=== PATIENT | female | born 1935 | race Caucasian/White ===

== ENCOUNTER 2020-09-22 12:31 | Inpatient (IN) | payer MEDICARE ==
[2020-09-22] MEDS ORDERED: SODIUM CHLORIDE 0.9% 1,000 ML IV STA ×2 (13:12)
[2020-09-22 13:25] LABS: Basophils % (A) 1 %; Eosinophils # (A) 0.1 k/uL (0-0.7); Eosinophils % (A) 2 %; HCT 41.7 % (34.0-46.0); HGB 14.2 gm/dL (11.4-16.0); Lymphocytes # (A) 0.9 k/uL (1.0-4.8); Lymphocytes % (A) 16 %; MCH 31.9 pg (25.0-35.0); MCV 93.9 fL (80.0-100.0); Mean Platelet Volume 7.5; Monocytes # (A) 0.5 k/uL (0-1.0); Monocytes % (A) 8 %; Neutrophils % (A) 71 %; Platelet Count 230 k/uL (150-450); RBC 4.44 m/uL (3.80-5.40); RDW 12.6 % (11.5-15.5); WBC 5.7 k/uL (3.8-10.6)
--- NOTE | 2020-09-22 13:30 | XR ---
EXAMINATION TYPE: XR chest 2V DATE OF EXAM: 09/22/2020 COMPARISON: 06/14/2011 INDICATION: Weakness and hypotension TECHNIQUE: Frontal and lateral views of the chest are obtained. FINDINGS: The heart size is normal. The pulmonary vasculature is normal. The lungs are clear. There is elevation of the right diaphragm. Advanced degenerative changes at the left shoulder. Some degenerative changes also noted at the right shoulder. IMPRESSION: 1. No acute pulmonary process.
--- NOTE | 2020-09-22 13:47 | ED ---
Weakness HPI - General Chief complaint: Weakness Stated complaint: Lethargic, not eating Time Seen by Provider: 09/22/20 12:44 Source: patient, family, RN notes reviewed, old records reviewed Mode of arrival: wheelchair Limitations: no limitations - History of Present Illness Initial comments: This 85-year-old female was brought in by family with complaints of weakness that is dressed over last one half weeks he agrees oral intake decreased urine output sleeping a lot no overt pain she does have chronic lymphedema which she is improving no falls no fevers chills sweats other symptoms MD Complaint: generalized weakness - Related Data Home Medications Medication Instructions Recorded Confirmed Digoxin [Lanoxin] 125 mcg PO DAILY 09/22/20 09/22/20 Furosemide [Lasix] See Taper PO DAILY 09/22/20 09/22/20 HYDROcodone/APAP 7.5-325MG [[place] 1 tab PO Q6H PRN 09/22/20 09/22/20 7.5-325] Levothyroxine Sodium [Synthroid] 125 mcg PO DAILY 09/22/20 09/22/20 Propranolol [Inderal] 40 mg PO QID 09/22/20 09/22/20 Spironolactone [Aldactone] 12.5 - 25 mg PO DAILY 09/22/20 09/22/20 Allergies Allergy/AdvReac Type Severity Reaction Status Date / Time No Known Allergies Allergy Verified 09/22/20 14:03 Review of Systems ROS Statement: Those systems with pertinent positive or pertinent negative responses have been documented in the HPI. ROS Other: All systems not noted in ROS Statement are negative. Past Medical History Past Medical History: Hypertension History of Any Multi-Drug Resistant Organisms: None Reported Past Surgical History: Hernia Repair, Hysterectomy Past Psychological History: No Psychological Hx Reported Smoking Status: Never smoker Past Alcohol Use History: None Reported Past Drug Use History: None Reported General Exam - General Exam Comments Initial Comments: This is a well-developed sec appearing female who is awake alert oriented 3 Limitations: no limitations General appearance: alert, lethargic Head exam: Present: atraumatic, normocephalic, normal inspection Eye exam: Present: normal appearance, PERRL, EOMI. Absent: scleral icterus, conjunctival injection, periorbital swelling ENT exam: Present: mucous membranes dry Neck exam: Present: normal inspection, full ROM, other (Social [place] improved). Absent: tenderness, meningismus, lymphadenopathy Respiratory exam: Present: normal lung sounds bilaterally. Absent: respiratory distress, wheezes, rales, rhonchi, stridor Cardiovascular Exam: Present: normal rhythm, bradycardia, normal heart sounds. Absent: systolic murmur, diastolic murmur, rubs, gallop, clicks GI/Abdominal exam: Present: soft, normal bowel sounds. Absent: distended, tenderness, guarding, rebound, rigid Extremities exam: Present: full ROM, normal capillary refill, pedal edema. Absent: tenderness, joint swelling, calf tenderness Back exam: Present: normal inspection Neurological exam: Present: alert, oriented X3, CN II-XII intact Psychiatric exam: Present: normal affect, normal mood Skin exam: Present: warm, dry, intact, normal color. Absent: rash Course Vital Signs 09/22/20 09/22/20 09/22/20 12:32 14:05 14:56 Temperature 98.5 F Pulse Rate 56 L 56 L 83 Respiratory 17 20 20 Rate Blood Pressure 86/48 95/51 80/54 O2 Sat by Pulse 97 96 96 Oximetry EKG Findings - EKG Results: EKG: interpreted by ERMD, sinus rhythm (Sinus bradycardia first-degree AV block rate of 50. Interval 300 QRS duration 90 QT since QTC 394/359 with exodeviation poor R-wave progression) Medical Decision Making - Medical Decision Making I did discuss [employer] the patient family patient does demonstrate evidence of dehydration with hyponatremia also renal insufficiency evidence of hypothyroidism and increased troponin though she's had no chest pain. Patient will be admitted the case is discussed with Dr. Christiansen - Lab Data Result diagrams: 09/22/20 13:09 09/22/20 13:09 Lab Results 09/22/20 09/22/20 09/22/20 Range/Units 13:09 13:09 13:09 WBC 5.7 (3.8-10.6) k/uL RBC 4.44 (3.80-5.40) m/uL Hgb 14.2 (11.4-16.0) gm/dL Hct 41.7 (34.0-46.0) % MCV 93.9 (80.0-100.0) fL MCH 31.9 (25.0-35.0) pg MCHC 34.0 (31.0-37.0) g/dL RDW 12.6 (11.5-15.5) % Plt Count 230 (150-450) k/uL MPV 7.5 Neutrophils % 71 % Lymphocytes % 16 % Monocytes % 8 % Eosinophils % 2 % Basophils % 1 % Neutrophils # 4.0 (1.3-7.7) k/uL Lymphocytes # 0.9 L (1.0-4.8) k/uL Monocytes # 0.5 (0-1.0) k/uL Eosinophils # 0.1 (0-0.7) k/uL Basophils # 0.0 (0-0.2) k/uL Sodium 125 L (137-145) mmol/L Potassium 5.1 (3.5-5.1) mmol/L Chloride 88 L (98-107) mmol/L Carbon Dioxide 19 L (22-30) mmol/L Anion Gap 18 mmol/L BUN 75 H (7-17) mg/dL Creatinine 1.94 H (0.52-1.04) mg/dL Est GFR (CKD-EPI)AfAm 26 (>60 ml/min/1.73 sqM) Est GFR (CKD-EPI)NonAf 23 (>60 ml/min/1.73 sqM) Glucose 74 (74-99) mg/dL Calcium 8.9 (8.4-10.2) mg/dL Magnesium 2.4 H (1.6-2.3) mg/dL Total Bilirubin 1.2 (0.2-1.3) mg/dL AST 24 (14-36) U/L ALT 7 (4-34) U/L Alkaline Phosphatase 156 H (38-126) U/L Creatine Kinase 72 (30-135) U/L Troponin I 0.043 H* (0.000-0.034) ng/mL Total Protein 6.7 (6.3-8.2) g/dL Albumin 4.1 (3.5-5.0) g/dL Lipase 923 H (23-300) U/L - Radiology Data Radiology results: report reviewed (Imaging reviewed no acute findings), image reviewed Disposition Clinical Impression: Dehydration, Acute kidney injury, Elevated troponin, Hyponatremia syndrome, P ancreatitis Disposition: ADMITTED IP TO THIS [facility] Condition: Fair Referrals: Roman Phelan MD [Primary Care Provider] - 1-2 days
[2020-09-22 13:48] LABS: Albumin 4.1 g/dL (3.5-5.0); Calcium 8.9 mg/dL (8.4-10.2); Magnesium 2.4 mg/dL (1.6-2.3); Potassium 5.1 mmol/L (3.5-5.1); Total Bilirubin 1.2 mg/dL (0.2-1.3); Total Protein 6.7 g/dL (6.3-8.2)
[2020-09-22] MEDS ORDERED: NALOXONE 0.4 MG/ML 1 ML VIAL IV PRN (15:10)
[2020-09-22] MEDS ORDERED: HYDROcodone/APAP 7.5-325MG 1 EACH TAB PO PRN (15:11)
[2020-09-22] MEDS ORDERED: IOPAMIDOL CONTRAST (ORAL USE) VIAL PO PRN (15:33)
[2020-09-22 16:24] LABS: Appearance,Urine Clear (Clear); Bilirubin,Urine Negative (Negative); Blood,Urine Negative (Negative); Color,Urine Yellow; Glucose,Urine (UA) Negative (Negative); Ketones,Urine 1+ (Negative); Leukocyte Esterase,Urine Negative (Negative); Nitrite,Urine Negative (Negative); Protein,Urine Negative (Negative); Specific Gravity,Urine 1.007 (1.001-1.035); Urobilinogen,Urine <2.0 mg/dL (<2.0)
--- NOTE | 2020-09-22 17:38 | CT ---
EXAMINATION TYPE: CT abdomen pelvis wo con DATE OF EXAM: 09/22/2020 COMPARISON: Radiographs 06/09/2011. HISTORY: Decreased appetite. CT DLP: 488.6 mGycm Automated exposure control for dose reduction was used. TECHNIQUE: Helical acquisition of images was performed from the lung bases through the pelvis. FINDINGS: LUNG BASES: Small opacity in the right lower lobe and minimal of the left lower lobe. No significant pleural effusion. LIVER/GB: No acute abnormality is appreciated. Cholecystectomy. Mild intrahepatic biliary ductal dila tation, nonspecific. Additional surgical clips in the right upper quadrant and retroperitoneum. PANCREAS: No significant abnormality is seen. SPLEEN: No significant abnormality is seen. ADRENALS: No significant abnormality is seen. KIDNEYS: 2 right and single left nonobstructing renal calculi measuring up to 3 mm. No bilateral hydr onephrosis or perinephric abnormality. FREE AIRNo free air is visualizedzed RETROPERITONEAL ADENOPATHYNone visualizedzed REPRODUCTIVE ORGANNo significant abnormality is seeneen URINARY BLADDER: Mildly distended urinary bladder. No significant wall thickening. PELVIC ADENOPATHYNone visualized.ed. OSSEOUS STRUCTURES: No acute abnormality is seen. Moderate to severe spondylosis with severe dextros coliosis of the lumbar spine centered at L3-L4. BOWEL: Moderate-sized bowel containing right inguinal hernia. No bowel obstruction or free fluid.. OTHER: None IMPRESSION: Mild bibasilar opacities, correlate for atelectasis versus developing infiltrates. No definite acute abnormality of the abdomen/pelvis. Chronic findings include nonobstructing renal calculi, bowel containing inguinal hernia and scoliosis as above.
[2020-09-22] MEDS: PROPRANOLOL 40 MG TAB PO SCH ×2 (21:09→22:42)
[2020-09-23] MEDS: LEVOTHYROXINE 125 MCG TAB PO SCH (06:25)
[2020-09-23 08:25] LABS: Albumin 3.5 g/dL (3.5-5.0); Calcium 8.6 mg/dL (8.4-10.2); Potassium 4.8 mmol/L (3.5-5.1); Total Bilirubin 1.1 mg/dL (0.2-1.3); Total Protein 5.9 g/dL (6.3-8.2)
[2020-09-23] MEDS ORDERED: SPIRONOLACTONE 25 MG TAB PO SCH (09:00)
[2020-09-23] MEDS ORDERED: DIGOXIN 125 MCG TAB PO SCH (09:00)
[2020-09-23] MEDS ORDERED: FUROSEMIDE 40 MG TAB PO SCH (09:00)
[2020-09-23] MEDS ORDERED: SODIUM CHLORIDE 0.9% 500 ML 500 ML IV ONE (09:29)
[2020-09-23] MEDS: PROPRANOLOL 40 MG TAB PO SCH (09:32)
--- NOTE | 2020-09-23 10:17 | P.CRDCN ---
History of Present Illness History of present illness: HISTORY OF PRESENTING ILLNESS This is a pleasant 85-year-old female past medical history significant for atrial fibrillation on anticoagulation, hypertension. She used to see Dr. Hinojosa last seen in 2016. We have been asked to see in consultation for elevated troponin. Patient started on bedside. For the past 12 weeks family has noticed that patient has had decreased by mouth intake, not looking well. Patient appeared to be dehydrated and was brought to the emergency department. Patient recently has had diarrhea, however family states that patient has history of having diarrhea. Patient is unsure why she has a decrease in appetite. She denies any nausea, vomiting, sick contacts. She denies any chest pain, shortness of breath, palpitations, lightheadedness, dizziness, syncope. Patient does have chronic lower extremity edema. Her legs do swell mostly at the end of the day, and are relieved with elevation. She states she was recently given PO Lasix due to lower extremity edema. On admission EKG revealed sinus bradycardia with first degree AV block, left axis deviation, non-specific ST-T wave abnormalities. Laboratory reviewed sodium 125, potassium 5.1, BUN 75, serum ferritin 1.94, magnesium 2.4, troponin 0.043, lipase 923, TSH within normal limits. Current home medications include spironolactone 12.5 mg daily, propanolol 40 mg 3 times a day, Synthroid 125mcg daily, Lasix 40 mg daily, [id number] daily. Telemetry reviewed patient in sinus mechanism heart rate 50-high 60s. Chest x-ray no acute cardiopulmonary process. Abdominal/pelvis CT revealed no definite abnormality of the abdomen and pelvis, mild bibasilar opacities correlate for atelectasis. Chronic findings including renal calculi, bowel continuing renal hernia, scoliosis. REVIEW OF SYSTEMS At the time of my exam: CONSTITUTIONAL: Denies fever or chills. CARDIOVASCULAR: Denies chest pain, shortness of breath, orthopnea, PND or palpitations. RESPIRATORY: Denies cough. GASTROINTESTINAL: +decreased in appetite + diarrhea. Denies abdominal pain, constipation, nausea or vomiting. MUSCULOSKELETAL: Denies myalgias. NEUROLOGIC: Denies numbness, tingling, headacbe or weakness. ENDOCRINE: Denies fatigue, weight change, polydipsia or polyurina. GENITOURINARY: Denies burning, hematuria or urgency with micturation. HEMATOLOGIC: Denies history of anemia or bleeding. PHYSICAL EXAMINATION Blood pressure 74/44 heart rate 67 afebrile and maintaining oxygen saturation 95% on room air CONSTITUTIONAL: No apparent distress. HEENT: Head is normocephalic. Pupils are equal, round. Sclerae anicteric. Mucous membranes of the mouth are moist. No JVD. No carotid bruit. CHEST EXAMINATION: Lungs are clear to auscultation. No chest wall tenderness is noted on palpation or with deep breathing. HEART EXAMINATION: Regular rate and rhythm. S1, S2 heard. No murmurs, gallops or rub. ABDOMEN: Soft, nontender. Positive bowel sounds. EXTREMITIES: 2+ peripheral pulses, bilateral lower extremity edema, appears to be venous insufficiency. NEUROLOGIC EXAMINATION: Patient is awake, alert and oriented x3. ASSESSMENT Decreased appetite Hypotension Dehydration Acute Kidney Injury Venous Insufficiency Elevated troponin, most likely related to patient acute kidney injury, not indicative of acute coronary syndrome History of hypertension History of paroxysmal atrial fibrillation not on anticoagulation for unknown reasons- currently maintaining sinus mechanism. PLAN Will give another 500cc IV fluid bolus for hypotension We will obtain echocardiogram Patients home cardiac medications at this time due to hypotension If echocardiogram within normal limits and no acute findings, no further cardiac workup indicated at this time. Patient can follow up as an outpatient in the office for further cardiac management Further recommendations based on clinical course Nurse Practitioner note has been reviewed, I agree with a documented findings and plan of care. Patient was seen and examined. Past Medical History Past Medical History: Hypertension History of Any Multi-Drug Resistant Organisms: None Reported Past Surgical History: Hernia Repair, Hysterectomy Past Psychological History: No Psychological Hx Reported Smoking Status: Never smoker Past Alcohol Use History: None Reported Past Drug Use History: None Reported Medications and Allergies Home Medications Medication Instructions Recorded Confirmed Type Digoxin [Lanoxin] 125 mcg PO DAILY 09/22/20 09/22/20 History Furosemide [Lasix] See Taper PO DAILY 09/22/20 09/22/20 History HYDROcodone/APAP 7.5-325MG [[place] 1 tab PO Q6H PRN 09/22/20 09/22/20 History 7.5-325] Levothyroxine Sodium [Synthroid] 125 mcg PO DAILY 09/22/20 09/22/20 History Propranolol [Inderal] 40 mg PO QID 09/22/20 09/22/20 History Spironolactone [Aldactone] 12.5 - 25 mg PO DAILY 09/22/20 09/22/20 History Allergies Allergy/AdvReac Type Severity Reaction Status Date / Time No Known Allergies Allergy Verified 09/22/20 14:03 Physical Exam Vitals: Vital Signs Temp Pulse Pulse Resp BP BP BP 09/23/20 09:09 82/49 09/23/20 09:03 80/50 09/23/20 09:02 73/48 09/23/20 09:01 71/48 09/23/20 08:55 97.4 F L 67 18 74/44 09/23/20 04:00 98.1 F 66 18 89/46 09/23/20 02:00 56 L 09/22/20 23:39 97.6 F 55 L 18 80/46 09/22/20 21:17 97.6 F 56 L 20 80/44 09/22/20 20:00 97.9 F 56 L 20 09/22/20 16:04 55 L 20 107/67 09/22/20 16:00 88 20 122/71 09/22/20 15:22 87 20 91/51 09/22/20 14:56 83 20 80/54 09/22/20 14:05 56 L 20 95/51 09/22/20 12:32 98.5 F 56 L 17 86/48 Pulse Ox 09/23/20 09:09 09/23/20 09:03 09/23/20 09:02 09/23/20 09:01 09/23/20 08:55 95 09/23/20 04:00 100 09/23/20 02:00 09/22/20 23:39 95 09/22/20 21:17 96 09/22/20 20:00 96 09/22/20 16:04 96 09/22/20 16:00 98 09/22/20 15:22 95 09/22/20 14:56 96 09/22/20 14:05 96 09/22/20 12:32 97 Intake and Output 09/22/20 09/23/20 09/23/20 22:59 06:59 14:59 Intake Total 118 Balance 118 Intake: Oral 118 Other: # Voids 1 1 Weight 62.142 kg 57.5 kg Results 09/22/20 13:09 07/30/21 07:47 Cardiac Enzymes 09/22/20 09/22/20 09/22/20 Range/Units 13:09 13:09 16:43 AST 24 (14-36) U/L Troponin I 0.043 H* 0.040 H* (0.000-0.034) ng/mL 09/22/20 09/23/20 Range/Units 20:31 07:47 AST 21 (14-36) U/L Troponin I 0.043 H* (0.000-0.034) ng/mL CBC 09/22/20 Range/Units 13:09 WBC 5.7 (3.8-10.6) k/uL RBC 4.44 (3.80-5.40) m/uL Hgb 14.2 (11.4-16.0) gm/dL Hct 41.7 (34.0-46.0) % Plt Count 230 (150-450) k/uL Comprehensive Metabolic Panel 09/22/20 09/22/20 09/23/20 Range/Units 13:09 16:43 07:47 Sodium 125 L 126 L 132 L (137-145) mmol/L Potassium 5.1 4.8 (3.5-5.1) mmol/L Chloride 88 L 96 L (98-107) mmol/L Carbon Dioxide 19 L 20 L (22-30) mmol/L BUN 75 H 57 H (7-17) mg/dL Creatinine 1.94 H 1.27 H (0.52-1.04) mg/dL Glucose 74 73 L (74-99) mg/dL Calcium 8.9 8.6 (8.4-10.2) mg/dL AST 24 21 (14-36) U/L ALT 7 6 (4-34) U/L Alkaline Phosphatase 156 H 138 H (38-126) U/L Total Protein 6.7 5.9 L (6.3-8.2) g/dL Albumin 4.1 3.5 (3.5-5.0) g/dL Current Medications Generic Name Dose Route Start Last Admin Trade Name Freq PRN Reason Stop Dose Admin Hydrocodone Bitart/Acetaminophen 1 each 09/22/20 15:11 Hydrocodone/Apap 7.5-325mg 1 Each Tab PO Q6H PRN Pain Digoxin 125 mcg 09/23/20 09:00 Digoxin 125 Mcg Tab PO DAILY DON Iopamidol 30 ml 09/22/20 15:33 Iopamidol Contrast (Oral Use) Vial PO 09/23/20 15:[address] Scan Levothyroxine Sodium 125 mcg 09/23/20 06:30 09/23/20 06:25 Levothyroxine 125 Mcg Tab PO 125 mcg DAILY@0630 DON Administration Naloxone HCl 0.2 mg 09/22/20 15:10 Naloxone 0.4 Mg/Ml 1 Ml Vial IV Q2M PRN Opioid Reversal Propranolol HCl 40 mg 09/22/20 18:00 09/22/20 22:42 Propranolol 40 Mg Tab PO Not Given QID DON Spironolactone 12.5 mg 09/23/20 09:00 Spironolactone 25 Mg Tab PO DAILY DON Intake and Output 09/22/20 09/23/20 09/23/20 22:59 06:59 14:59 Intake Total 118 Balance 118 Intake: Oral 118 Other: # Voids 1 1 Weight 62.142 kg 57.5 kg 09/22/20 13:09 09/23/20 07:47
[2020-09-23] MEDS: SODIUM CHLORIDE 0.9% 1,000 ML IV SCH ×2 (10:52→16:59)
--- NOTE | 2020-09-23 11:14 | P.HPIM ---
History of Present Illness H&P Date: 09/23/20 HISTORY OF PRESENT ILLNESS This is an 85-year-old female patient of Dr. Phelan with past medical history of paroxysmal atrial fibrillation, hypertension, hypothyroidism. Patient has had decreased appetite for at least a couple weeks and not drinking very much as well. Patient had increased lower extremity edema and her Lasix was increased by her PCP for about one week. She then was found to have low blood pressure and lisinopril was discontinued. Patient's family noted that she is staying in bed more and sleeping a lot and continued to not eat or drink. Patient denies any falls, no abdominal pain, no nausea. She denies having any palpitations, chest pain no cough. No known sick contacts. She does have chronic lower extremity edema which is better than her baseline today. Patient was brought into [facility] emergency center for evaluation. EKG was a first-degree AV block with no acute ST changes. CBC was unremarkable. Sodium 125, potassium 5.1, chloride 88, CO2 19, BUN 75 and creatinine 1.94, blood sugar 74. Magnesium 2.4. Total bilirubin 1.2, AST 24, ALT 7, alkaline phosphatase 156. CK 72. Troponin 0.043, 0.040, 0.043. TSH 0.8 50. Cortisol level XXI. Urinalysis clear, 1+ ketones, nitrate and leukoesterase negative. Chest x-ray no acute pulmonary process. CAT scan of the abdomen and pelvis without contrast revealed mild bibasilar opacities, correlate for atelectasis versus developing infiltrates. No definite acute abnormality in the abdomen or pelvis. Chronic findings include nonobstructive renal calculi, bowel containing inguinal hernia and scoliosis. REVIEW OF SYSTEMS Constitutional: No fever, no chills, no night sweats. Reports weight change. Reports weakness, reports fatigue reports lethargy. Reports daytime sleepiness. EENT: No headache. No blurred vision or double vision, no loss of vision. No loss of Hearing, no ringing in the ears, no dizziness. No nasal drainage or co ngestion. No epistaxis. No sore throat. Lungs: No shortness of breath, cough, no sputum production. No wheezing. Cardiovascular: No chest pain, reports chronic lower extremity edema. No palpitations. No paroxysmal nocturnal dyspnea. No orthopnea. No lightheadedness or dizziness. No syncopal episodes. Abdominal: No abdominal pain. No nausea, vomiting. No diarrhea. No constipation. No bloody or tarry stools. Reports loss of appetite. Genitourinary: No dysuria, increased frequency, urgency. No urinary retention. Musculoskeletal: No myalgias. Reports muscle weakness, no gait dysfunction, no frequent falls. No back pain. No neck pain. Integumentary: No wounds, no lesions. No rash or pruritus. No unusual bruising. No change in hair or nails. Neurologic: No aphasia. No facial droop. No change in mentation. No head injury. No headache. No paralysis. No paresthesia. Psychiatric: No depression. No anxiety. No mood swings. Endocrine: No abnormal blood sugars. Reports when ostomy care weight change. No excessive sweating or thirst. No cold intolerance. SOCIAL HISTORY Patient is a lifelong nonsmoker, no alcohol use, marijuana or illicit drug use. Patient lives at home with her son is at work during the day. She also has a son and [id number] that are in the same condominium complex and check on her frequently. She uses a walker for ambulation. She does not have oxygen, nebulizer, CPAP. FAMILY HISTORY Mother at age 102 and her end-of-life had dementia but otherwise no major medical problems. She does not recall the cause of her father's . Patient does not have any brothers. She has 1 sister with no major medical problems. Patient has 5 children. 3 sons and 1 has problems with his pancreas. She has 2 daughters and one has some type of neurological disorder. PHYSICAL EXAMINATION Gen: This is an 85-year-old female. She is resting in a recliner and appears to be comfortable. Patient appears to be frail. HEENT: Head is atraumatic, normocephalic. Pupils equal, round. Sclerae is anicteric. NECK: Supple. No JVD. No lymphadenopathy. No thyromegaly. LUNGS: Clear to auscultation. No wheezes or rhonchi. No intercostal retractions. HEART: Regular rate and rhythm. No murmur. ABDOMEN: Soft. Bowel sounds are present. No masses. No tenderness. EXTREMITIES: Bilateral pedal edema. No calf tenderness. NEUROLOGICAL: Patient is awake, alert and oriented x3. Cranial nerves 2 through 12 are grossly intact. ASSESSMENT AND PLAN 1. Acute kidney injury. IV fluids at 0.9 normal saline at 70 mL per hour for 10 hours, recheck electrolytes and renal function in the morning, increase oral protein with supplements and dietitian consult. Nephrology on consult. 2. Elevated troponins. Cardiology on consult and ruled out acute coronary syndrome. Echocardiogram has been ordered. 3. Hypotension secondary to dehydration. Patient is status post 2-1/2 L of IV fluid, Inderal, Lasix and digoxin held. Cardiology consult appreciated. 4. Hyponatremia most likely due to dehydration. Continue to monitor, patient is on IV fluids and then staff to contact Dr. Christiansen for further orders. 5. Paroxysmal atrial fibrillation. Patient is not currently on anticoagulation. All medications affecting blood pressure on hold due to hypotension. 6. Hypothyroidism. Continue levothyroxine 125 g daily. 7. Lower extremity edema improved from baseline with tenderness. Ultrasound of the lower extremity is ordered to rule out DVT. 8. Loss of appetite of unclear etiology. COVID-19, [place] 199, cortisol level ordered. TSH normal. 9. Hypertension. Hold lisinopril. 10. GI prophylaxis. Protonix. 11. DVT prophylaxis. Heparin subcu. Patient will be admitted to the hospital for a minimum of 2 night stay. DISCHARGE PLAN TBD, PT and OT consults. Impression and plan of care have been directed as dictated by the signing physician. Shagufta Stephens nurse practitioner acting as scribe for signing physician. Past Medical History Past Medical History: Hypertension History of Any Multi-Drug Resistant Organisms: None Reported Past Surgical History: Hernia Repair, Hysterectomy Past Psychological History: No Psychological Hx Reported Smoking Status: Never smoker Past Alcohol Use History: None Reported Past Drug Use History: None Reported Medications and Allergies Home Medications Medication Instructions Recorded Confirmed Type Digoxin [Lanoxin] 125 mcg PO DAILY 09/22/20 09/22/20 History Furosemide [Lasix] See Taper PO DAILY 09/22/20 09/22/20 History HYDROcodone/APAP 7.5-325MG [[place] 1 tab PO Q6H PRN 09/22/20 09/22/20 History 7.5-325] Levothyroxine Sodium [Synthroid] 125 mcg PO DAILY 09/22/20 09/22/20 History Propranolol [Inderal] 40 mg PO QID 09/22/20 09/22/20 History Spironolactone [Aldactone] 12.5 - 25 mg PO DAILY 09/22/20 09/22/20 History Allergies Allergy/AdvReac Type Severity Reaction Status Date / Time No Known Allergies Allergy Verified 09/22/20 14:03 Physical Exam Vitals: Vital Signs Temp Pulse Pulse Resp BP BP BP 09/23/20 09:09 82/49 09/23/20 09:03 80/50 09/23/20 09:02 73/48 09/23/20 09:01 71/48 09/23/20 08:55 97.4 F L 67 18 74/44 09/23/20 04:00 98.1 F 66 18 89/46 09/23/20 02:00 56 L 09/22/20 23:39 97.6 F 55 L 18 80/46 09/22/20 21:17 97.6 F 56 L 20 80/44 09/22/20 20:00 97.9 F 56 L 20 09/22/20 16:04 55 L 20 107/67 09/22/20 16:00 88 20 122/71 09/22/20 15:22 87 20 91/51 09/22/20 14:56 83 20 80/54 09/22/20 14:05 56 L 20 95/51 09/22/20 12:32 98.5 F 56 L 17 86/48 Pulse Ox 09/23/20 09:09 09/23/20 09:03 09/23/20 09:02 09/23/20 09:01 09/23/20 08:55 95 09/23/20 04:00 100 09/23/20 02:00 09/22/20 23:39 95 09/22/20 21:17 96 09/22/20 20:00 96 09/22/20 16:04 96 09/22/20 16:00 98 09/22/20 15:22 95 09/22/20 14:56 96 09/22/20 14:05 96 09/22/20 12:32 97 Intake and Output 09/22/20 09/23/20 09/23/20 22:59 06:59 14:59 Intake Total 118 Balance 118 Intake: Oral 118 Other: # Voids 1 1 Weight 62.142 kg 57.5 kg Results CBC & Chem 7: 09/22/20 13:09 09/23/20 07:47 Labs: Abnormal Lab Results - Last 24 Hours (Table) 09/22/20 09/22/20 09/22/20 Range/Units 13:09 13:09 13:09 Lymphocytes # 0.9 L (1.0-4.8) k/uL Sodium 125 L (137-145) mmol/L Chloride 88 L (98-107) mmol/L Carbon Dioxide 19 L (22-30) mmol/L BUN 75 H (7-17) mg/dL Creatinine 1.94 H (0.52-1.04) mg/dL Glucose (74-99) mg/dL Magnesium 2.4 H (1.6-2.3) mg/dL Alkaline Phosphatase 156 H (38-126) U/L Troponin I (0.000-0.034) ng/mL Total Protein (6.3-8.2) g/dL Lipase 923 H (23-300) U/L Urine Ketones 1+ H (Negative) 09/22/20 09/22/20 09/22/20 Range/Units 13:09 16:43 16:43 Lymphocytes # (1.0-4.8) k/uL Sodium 126 L (137-145) mmol/L Chloride (98-107) mmol/L Carbon Dioxide (22-30) mmol/L BUN (7-17) mg/dL Creatinine (0.52-1.04) mg/dL Glucose (74-99) mg/dL Magnesium (1.6-2.3) mg/dL Alkaline Phosphatase (38-126) U/L Troponin I 0.043 H* 0.040 H* (0.000-0.034) ng/mL Total Protein (6.3-8.2) g/dL Lipase (23-300) U/L Urine Ketones (Negative) 09/22/20 09/23/20 Range/Units 20:31 07:47 Lymphocytes # (1.0-4.8) k/uL Sodium 132 L (137-145) mmol/L Chloride 96 L (98-107) mmol/L Carbon Dioxide 20 L (22-30) mmol/L BUN 57 H (7-17) mg/dL Creatinine 1.27 H (0.52-1.04) mg/dL Glucose 73 L (74-99) mg/dL Magnesium (1.6-2.3) mg/dL Alkaline Phosphatase 138 H (38-126) U/L Troponin I 0.043 H* (0.000-0.034) ng/mL Total Protein 5.9 L (6.3-8.2) g/dL Lipase (23-300) U/L Urine Ketones (Negative) Thrombosis Risk Factor Assmnt - Choose All That Apply Any of the Below Risk Factors Present?: Yes Each Risk Factor Represents 3 Points: Age 75 years or older Thrombosis Risk Factor Assessment Total Risk Factor Score: 3 Thrombosis Risk Factor Assessment Level: Moderate Risk
--- NOTE | 2020-09-23 11:31 | ECHOF ---
Referral Reason:LV function elevated troponin MEASUREMENTS -------- HEIGHT: 154.9 cm WEIGHT: 57.2 kg BP: RVIDd: 2.9 cm (< 3.3) IVSd: 1.4 cm (0.6 - 1.1) LVIDd: 2.4 cm (3.9 - 5.3) LVPWd: 1.7 cm (0.6 - 1.1) IVSs: 1.8 cm LVIDs: 1.6 cm LVPWs: 1.7 cm LAESV Index (A-L): 24.90 ml/m Ao Diam: 4.2 cm (2.0 - 3.7) AV Cusp: 1.9 cm (1.5 - 2.6) LA Diam: 4.4 cm (2.7 - 3.8) MV EXCURSION: 12.451 mm (> 18.000) MV EF SLOPE: 19 mm/s (70 - 150) EPSS: 0.2 cm MV E Eric: 0.67 m/s MV DecT: 335 ms MV A Eric: 0.85 m/s MV E/A Ratio: 0.79 AR PHT: 493 ms RAP: 5.00 mmHg RVSP: 12.14 mmHg FINDINGS -------- This was a technically adequate study. The left ventricular size is normal. There is moderate concentric left ventricular hypertrophy. O verall left ventricular systolic function is normal with, an EF between 55 - 60 %. The diastolic fi lling pattern is normal for the age of the patient 10.49. The right ventricle is normal in size. The left atrium is mildly dilated. Normal LA size by volume 22+/-6 ml/m2. The right atrial size is normal. The aortic valve is trileaflet and appears structurally normal. Trace amount of aortic regurgitatio n. The mitral valve is normal. There is trace mitral regurgitation. The tricuspid valve appears structurally normal. Trace tricuspid regurgitation present. Right sen tricular systolic pressure is normal at < 35 mmHg. Trace/mild (physiologic) pulmonic regurgitation. 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 There is no pericardial effusion. CONCLUSIONS -------- 1. The left ventricular size is normal. 2. There is moderate concentric left ventricular hypertrophy. 3. Overall left ventricular systolic function is normal with, an EF between 55 - 60 %. 4. The diastolic filling pattern is normal for the age of the patient 10.49 5. The left atrium is mildly dilated. 6. Trace amount of aortic regurgitation. 7. There is trace mitral regurgitation. 8. Trace tricuspid regurgitation present. 9. Trace/mild (physiologic) pulmonic regurgitation. 10. 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 11. There is no pericardial effusion. [employer] MANAGER: Magui Saldana RDCS
--- NOTE | 2020-09-23 12:38 | US ---
EXAMINATION TYPE: US venous doppler duplex LE BI DATE OF EXAM: 09/23/2020 10:09 AM COMPARISON: NONE CLINICAL HISTORY: 85-year-old female edema and tenderness. SIDE PERFORMED: Bilateral TECHNIQUE: The lower extremity deep venous system is examined utilizing real time linear array sonog radha with graded compression, doppler sonography and color-flow sonography. VESSELS IMAGED: Common Femoral Vein Deep Femoral Vein Greater Saphenous Vein * Femoral Vein Popliteal Vein Small Saphenous Vein * Proximal Calf Veins (* superficial vessels) Right Leg: Negative for DVT Left Leg: Negative for DVT IMPRESSION: No evidence for DVT within the bilateral lower extremities imaged from the groin to the upper calves.
[2020-09-23 12:51] VITALS: BMI 23.9
--- NOTE | 2020-09-23 13:25 | CONS ---
CONSULTATION REASON FOR CONSULT: Hyponatremia. HISTORY OF PRESENT ILLNESS: The patient is an 85-year-old female who was admitted to the hospital with a history of increased weakness, not eating much over the past few days. The patient stated that she did have some diarrhea. No significant nausea, no recent new medications that were started. The patient denies any previous history of hyponatremia. Serum sodium was 125 mEq/L on admission. Patient has been maintained on IV fluids and her sodium is up to 132 today. Her blood pressure has been low with systolic in the 70s and 80s. At home, patient was maintained on Synthroid and Lasix and currently the Lasix is on hold. Chest x-ray on admission shows no acute process. Urine osmolality was 223. PAST MEDICAL HISTORY: Significant for hypertension. Hypothyroidism. Chronic A-fib. PAST SURGICAL HISTORY: Hernia repair, hysterectomy. SOCIAL HISTORY: Negative for smoking, drug abuse or alcohol abuse. MEDICATIONS: Prior to admission included: Digoxin, Lasix Synthroid, Imdur, Aldactone, [place]. ALLERGIES: None. REVIEW OF SYSTEMS: As per HPI. Other systems negative. EXAMINATION: Comfortable, awake, alert, oriented x3, not in any acute distress. Blood pressure 80/50, heart rate 67 per minute. She is afebrile. Examination of the heart S1, S2. Examination of the lungs, bilateral breath sounds are heard. Abdomen is soft, nontender. Examination of lower extremities shows no significant edema. RETAIL EVENT COORDINATOR exam grossly intact. LAB: Show sodium 132, potassium 4.8, chloride 96, CO2 is 20, BUN 57 serum creatinine 1.27. Troponin 0.043. UA is fairly benign. ASSESSMENT: 1. Acute kidney injury, prerenal and secondary to low blood pressure, currently improved with IV hydration. 2. Hypovolemic, hyponatremia, improved with normal saline. I will decrease the saline to about 80 mL an hour. Encourage increased oral intake. Check TSH level. Check random cortisol level as patient is maintained on Synthroid. 3. Hypovolemia and decreased oral intake. 4. Mild metabolic acidosis associated with renal failure, currently improved. PLAN: Continue with IV fluids. Encourage increased oral intake. Check random cortisol level as well as TSH level. Decrease the fluids to about 70 mL an hour. Thank you for this consultation. We will continue to follow the patient with you during her hospitalization. MMODL / IJN: [id number] /
[2020-09-23] MEDS: HEPARIN SODIUM,PORCINE/PF 5,000 UNIT/0.5 ML SYRINGE SQ SCH (19:53)
[2020-09-24] MEDS: LEVOTHYROXINE 125 MCG TAB PO SCH (06:05)
[2020-09-24] MEDS ORDERED: PANTOPRAZOLE 40 MG TABLET PO SCH (07:30)
[2020-09-24 07:40] VITALS: RESP 18; TEMP 98.4
[2020-09-24] MEDS: HEPARIN SODIUM,PORCINE/PF 5,000 UNIT/0.5 ML SYRINGE SQ SCH (08:17)
[2020-09-24 08:40] LABS: ALT <6 U/L (4-34); AST 20 U/L (14-36); African American GFR (CKD) 77 (>60 ml/min/1.73 sqM); Albumin 3.1 g/dL (3.5-5.0); Alkaline Phosphatase 125 U/L (38-126); Anion Gap 11 mmol/L; Blood Urea Nitrogen 33 mg/dL (7-17); Calcium 8.6 mg/dL (8.4-10.2); Carbon Dioxide 21 mmol/L (22-30); Chloride 101 mmol/L (98-107); Glucose 87 mg/dL (74-99); Non-African American GFR(CKD) 67 (>60 ml/min/1.73 sqM); Sodium 133 mmol/L (137-145); Total Bilirubin 0.9 mg/dL (0.2-1.3); Total Protein 5.4 g/dL (6.3-8.2)
[2020-09-24] MEDS ORDERED: SODIUM CHLORIDE 0.9% 1,000 ML IV SCH (10:45)
[2020-09-24 11:07] VITALS: PULSE 73
[2020-09-24] MEDS ORDERED: ACETAMINOPHEN TAB 325 MG TAB PO PRN (11:27)
--- NOTE | 2020-09-24 11:31 | P.DS ---
Providers Date of admission: 09/22/20 15:10 Attending physician: Marlene Christiansen Consults: 09/22/20 15:31 Consult Physician Routine Consulting Provider: Pati Romo Consult Reason/Comments: Acute kidney injury Do you want consulting provider notified?: Yes 09/22/20 15:32 Consult Physician Routine Consulting Provider: Lee Greer Consult Reason/Comments: Elevated troponin with renal insufficiency Do you want consulting provider notified?: Yes Primary care physician: Roman Phelan [place] [facility] [employer] [facility] Course: This is an 85-year-old female patient of Dr. Phelan with past medical history of paroxysmal atrial fibrillation, hypertension, hypothyroidism. Patient has had decreased appetite for at least a couple weeks and not drinking very much as well. Patient had increased lower extremity edema and her Lasix was increased by her PCP for about one week. She then was found to have low blood pressure and lisinopril was discontinued. Patient's family noted that she is staying in bed more and sleeping a lot and continued to not eat or drink. Patient denies any falls, no abdominal pain, no nausea. She denies having any palpitations, chest pain no cough. No known sick contacts. She does have chronic lower extremity edema which is better than her baseline today. Patient was brought into [facility] emergency center for evaluation. EKG was a first-degree AV block with no acute ST changes. CBC was unremarkable. Sodium 125, potassium 5.1, chloride 88, CO2 19, BUN 75 and creatinine 1.94, blood sugar 74. Magnesium 2.4. Total bilirubin 1.2, AST 24, ALT 7, alkaline phosphatase 156. CK 72. Troponin 0.043, 0.040, 0.043. TSH 0.850. Cortisol level XXI. Urinalysis clear, 1+ ketones, nitrate and leukoesterase negative. Chest x-ray no acute pulmonary process. CAT scan of the abdomen and pelvis without contrast revealed mild bibasilar opacities, correlate for atelectasis versus developing infiltrates. No definite acute abnormality in the abdomen or pelvis. Chronic findings include nonobstructive renal calculi, bowel containing inguinal hernia and scoliosis. 09/24 patient examined bedside. Diarrhea has resolved. Denies any chest pain breathing difficulty, nausea or vomiting. Family at bedside, was comfortable taking the patient home if medically stable. Discussed with cardiology patient is cleared from their standpoint. Vitals were reviewed patient 98.4 pulse 73 respiratory rate 18 blood pressure 103/59. Orthostatics were obtained which were negative. Patient will receive propanolol 40 mg before she is discharged. We will hold patient's diuretics until patient sees her primary care physician as outpatient REVIEW OF SYSTEMS Constitutional: No fever, no chills, no night sweats. Reports weight change. Reports weakness, reports fatigue reports lethargy. Reports daytime sleepiness. EENT: No headache. No blurred vision or double vision, no loss of vision. No loss of Hearing, no ringing in the ears, no dizziness. No nasal drainage or congestion. No epistaxis. No sore throat. Lungs: No shortness of breath, cough, no sputum production. No wheezing. Cardiovascular: No chest pain, reports chronic lower extremity edema. No palpitations. No paroxysmal nocturnal dyspnea. No orthopnea. No lightheadedness or dizziness. No syncopal episodes. Abdominal: No abdominal pain. No nausea, vomiting. No diarrhea. No const ipation. No bloody or tarry stools. Reports loss of appetite. Genitourinary: No dysuria, increased frequency, urgency. No urinary retention. Musculoskeletal: No myalgias. Reports muscle weakness, no gait dysfunction, no frequent falls. No back pain. No neck pain. Integumentary: No wounds, no lesions. No rash or pruritus. No unusual bruising. No change in hair or nails. Discharge diagnoses 1. Acute kidney injury likely ATN 2. Elevated troponins secondary to acute kidney injury N STEMI ruled out. 3. Hypotension secondary to dehydration. 4. Hyponatremia most likely due to dehydration. 5. Paroxysmal atrial fibrillation. 6. Hypothyroidism. 7. Lower extremity edema improved from baseline with tenderness. 8. Loss of appetite of unclear etiology 9. Hypertension. Follow-up with primary care physician Disposition home with self-care. Patient has good family support lives close by Patient Condition at Discharge: Fair Plan - Discharge Summary Discharge Rx Participant: No New Discharge Prescriptions: Continue Propranolol [Inderal] 40 mg PO QID Digoxin [Lanoxin] 125 mcg PO DAILY Levothyroxine Sodium [Synthroid] 125 mcg PO DAILY HYDROcodone/APAP 7.5-325MG [[place] 7.5-325] 1 tab PO Q6H PRN PRN Reason: Pain Discontinued Furosemide [Lasix] See Taper PO DAILY Spironolactone [Aldactone] 12.5 - 25 mg PO DAILY Discharge Medication List Digoxin [Lanoxin] 125 mcg PO DAILY 09/22/20 [History] HYDROcodone/APAP 7.5-325MG [[place] 7.5-325] 1 tab PO Q6H PRN 09/22/20 [History] Levothyroxine Sodium [Synthroid] 125 mcg PO DAILY 09/22/20 [History] Propranolol [Inderal] 40 mg PO QID 09/22/20 [History] Follow up Appointment(s)/Referral(s): Niraj John DO [STAFF PHYSICIAN] - 2 Weeks Roman Phelan MD [Primary Care Provider] - 1-2 days Discharge Disposition: HOME SELF-CARE
[2020-09-24] MEDS ORDERED: SODIUM CHLORIDE 0.9% 1,000 ML IV ONE (12:44)
[2020-09-24] MEDS ORDERED: PROPRANOLOL 40 MG TAB PO SCH (13:00)
[2020-09-24 14:08] VITALS: BP 94/52
--- NOTE | 2020-09-24 14:19 | P.PN ---
Subjective Progress Note Date: 09/24/20 Follow-up for hyponatremia. Objective - Vital Signs Vital signs: Vital Signs Temp 98.4 F 09/24/20 07:39 Pulse 73 09/24/20 11:06 Resp 18 09/24/20 11:06 BP 94/52 09/24/20 14:07 Pulse Ox 96 09/24/20 11:06 Intake & Output 09/23/20 09/24/20 09/24/20 18:59 06:59 18:59 Intake Total 358 600 240 Output Total 800 700 Balance -442 -100 240 Weight 57.5 kg 57 kg Intake: Oral 358 600 240 Output: Urine 800 700 Other: Voiding Method Toilet # Voids 1 # Bowel Movements 1 1 1 - Exam No acute distress S1-S2 heard Lungs clear No edema - Labs CBC & Chem 7: 09/22/20 13:09 09/24/20 08:09 Labs: Abnormal Lab Results - Last 24 Hours (Table) 09/23/20 09/24/20 Range/Units 07:47 08:09 Sodium 133 L (137-145) mmol/L Carbon Dioxide 21 L (22-30) mmol/L BUN 33 H (7-17) mg/dL Total Protein 5.4 L (6.3-8.2) g/dL Albumin 3.1 L (3.5-5.0) g/dL Cortisol 25.6 H (3.10-22.40) ug/dL Assessment and Plan Assessment: #1 hypernatremia secondary to hypovolemia. SIADH cannot be ruled out completely. #2 normal renal function Plan: #1 sodium improved with normal saline. But still not back to normal. #2 stop IV fluids stable from nephrology for discharge. #3 follow-up in the office in 2-3 weeks
== END 2020-09-24 14:44 | disposition home or self-care (01) | DRG 683 ==
LOC: EC 12:31 → 3SCARD 15:10
PROVIDERS: ADMIT Family Medicine; ATTEND Family Medicine
DX: N17.0 Acute kidney failure with tubular necrosis (principal); E22.2 Syndrome of inappropriate secretion of antidiuretic hormone; E87.0 Hyperosmolality and hypernatremia; E87.2 Acidosis; I48.20 Chronic atrial fibrillation, unspecified; E03.9 Hypothyroidism, unspecified; E86.0 Dehydration; E86.1 Hypovolemia; I10 Essential (primary) hypertension; N20.0 Calculus of kidney; I44.0 Atrioventricular block, first degree; R79.89 Other specified abnormal findings of blood chemistry; I48.0 Paroxysmal atrial fibrillation; I08.8 Other rheumatic multiple valve diseases; M41.9 Scoliosis, unspecified; R77.8 Other specified abnormalities of plasma proteins; I89.0 Lymphedema, not elsewhere classified; I87.2 Venous insufficiency (chronic) (peripheral); Z79.01 Long term (current) use of anticoagulants; Z79.890 Hormone replacement therapy; Z79.899 Other long term (current) drug therapy; Z90.710 Acquired absence of both cervix and uterus; Z87.19 Personal history of other diseases of the digestive system; Z20.822 Contact with and (suspected) exposure to COVID-19
CPT/HCPCS: 36415; 71046; 74176; 80053; 81003; 82533; 82550; 83690; 83735; 83935; 84295; 84443; 84484; 85025; 86301; 87635; 93005; 93306; 93970; 96360; 99285

== ENCOUNTER → 2020-11-24 | Outpatient (CLI) | payer MEDICARE ==
[~2020-11-24] MED LIST: DOBUTamine DRIP for NUC MED 500 MG in DEXTROSE/WATER 1 250ML.BAG IV PRN
--- NOTE | 2020-11-24 12:07 | P.STRESS ---
- Stress Test Note Stress Test Results/Findings: Exam Performed: dobutamine stress echo Exam Date: 11/24/20 Reason for Exam: PRE OP Height: 5 ft 1 in Weight: 130 kg Protocol: DSE Stage: IV Duration of Exercise: 9.21 Resting Heart Rate: 60 Resting Blood Pressure: 135/86 Maximum Achieved Heart Rate: 127 Maximum Achieved Blood Pressure: 180/93 85% PMHR: 113 100% PMHR: 133 METS: Technologist Comment: Stress Test Results/Findings: Patient underwent dobutamine stress echo with infusion of dobutamine into Stage 4 for a total of 9 minutes 21 seconds. Patient's maximum heart rate was 127 which represented 95% age-predicted maximum heart rate. Stress EKG portion: At baseline patient's EKG showed Atrial fibrillation with controlled ventricular rate, left axis deviation, nonspecific 0.[address] depressions in the inferior leads. With stress there is no significant change from baseline. Stress echo portion: 2-D echocardiogram was performed in the parasternal long, personal short, apical 2 and apical four-chamber views at rest, low-dose, peak infusion and in recovery. At baseline, echocardiogram showed left ventricular ejection fraction 55% without wall motion abnormalities. With peak infusion, echocardiogram shows improvement in left ventricular ejection fraction, increase contractility, decrease in left ventricular end systolic dimension without wall motion abnormalities consistent with a normal response to dobutamine. Conclusions: 1. Normal stress EKG and echo response to dobutamine infusion without any evid ence of inducible ischemia. 2. Normal EF 55%
== END | disposition home or self-care (01) ==
LOC: RADNMMAIN 09:52
PROVIDERS: ATTEND Internal Medicine
DX: Z01.818 Encounter for other preprocedural examination (principal)
CPT/HCPCS: 93351

== ENCOUNTER 2022-05-07 15:19 | Observation (INO) | payer MEDICARE ==
--- NOTE | 2022-05-07 16:39 | ED ---
General Adult HPI - General Chief complaint: Recheck/Abnormal Lab/Rx Stated complaint: Low Potassium,Sent by PCP Time Seen by Provider: 05/07/22 16:35 Source: patient Mode of arrival: wheelchair Limitations: no limitations - History of Present Illness Initial comments: 86-year-old female past medical history of A. fib, hypertension, peripheral edema on Lasix who presents emergency Department with abnormal labs. Does have a home health care provider. They changed her Mckinley today and noted that she had some color changes in her urination. They thought that her urine looked dark and may be even bloody. She denies any symptoms of dysuria, hematuria or difficulty with drainage. No fevers. Admits to chronic chills. She has had some weakness per son they state this is common when she has low potassium. Laboratory studies were drawn this morning. They received a call that her potassium was extremely low and that she had to go to the hospital for replacement. They report to significant improvement in her edema. Primary care recommended one week ago to start her on [id number] supplementation of potassium. Ljimbcjl-sb-gan has purchased the potassium and she started taking it 1 week ago. No diarrhea. No nausea vomiting. No other alleviating, Perceptin or modifying factors - Related Data Home Medications Medication Instructions Recorded Confirmed Apixaban [Eliquis] 2.5 mg PO BID 04/06/22 05/07/22 Furosemide [Lasix] 40 mg PO DAILY 04/06/22 05/07/22 Levothyroxine Sodium [Synthroid] 75 mcg PO DAILY@0630 05/07/22 05/07/22 Previous Rx's Medication Instructions Recorded Acetaminophen Tab [Tylenol] 650 mg PO Q6HR PRN tab 04/09/22 Potassium Chloride [K-Tab ER] 20 meq PO BID 30 Days #60 tab 05/08/22 dronabinoL [Marinol] 2.5 mg PO DAILY #10 cap 05/08/22 Allergies Allergy/AdvReac Type Severity Reaction Status Date / Time No Known Allergies Allergy Verified 05/07/22 17:35 Review of Systems ROS Statement: Those systems with pertinent positive or pertinent negative responses have been documented in the HPI. ROS Other: All systems not noted in ROS Statement are negative. Past Medical History Past Medical History: Atrial Fibrillation, Hypertension History of Any Multi-Drug Resistant Organisms: None Reported Past Surgical History: Hernia Repair, Hysterectomy Past Anesthesia/Blood Transfusion Reactions: No Reported Reaction Past Psychological History: No Psychological Hx Reported Smoking Status: Never smoker Past Alcohol Use History: None Reported Past Drug Use History: None Reported General Exam Limitations: no limitations General appearance: alert, in no apparent distress Head exam: Present: atraumatic, normocephalic, normal inspection Eye exam: Present: normal appearance, PERRL, EOMI. Absent: scleral icterus, conjunctival injection, periorbital swelling ENT exam: Present: normal exam, mucous membranes moist Neck exam: Present: normal inspection. Absent: tenderness, meningismus, lymphadenopathy Respiratory exam: Present: normal lung sounds bilaterally. Absent: respiratory distress, wheezes, rales, rhonchi, stridor Cardiovascular Exam: Present: regular rate, normal rhythm, normal heart sounds. Absent: systolic murmur, diastolic murmur, rubs, gallop, clicks GI/Abdominal exam: Present: soft, normal bowel sounds. Absent: distended, tenderness, guarding, rebound, rigid Extremities exam: Present: normal inspection, full ROM, normal capillary refill. Absent: tenderness, pedal edema, joint swelling, calf tenderness Back exam: Present: normal inspection Neurological exam: Present: alert, oriented X3, CN II-XII intact Psychiatric exam: Present: normal affect, normal mood Skin exam: Present: warm, dry, intact, normal color. Absent: rash Course Vital Signs 05/07/22 05/07/22 15:44 19:08 Temperature 98.9 F Pulse Rate 92 86 Respiratory 16 18 Rate Blood Pressure 115/73 108/79 O2 Sat by Pulse 97 97 Oximetry Medical Decision Making - Medical Decision Making Was pt. sent in by a medical professional or institution (, PA, SUBSTATION SUPERVISOR, urgent care, hospital, or long term...) When possible be specific @ -No Did you speak to anyone other than the patient for history (EMS, parent, family, police, friend...)? What history was obtained from this source @ -son Did you review nursing and triage notes (agree or disagree)? Why? @ -I reviewed and agree with nursing and triage notes Were old charts reviewed (outside hosp., previous admission, EMS record, old EKG, old radiological studies, urgent care reports/EKG's, long term records)? Report findings @ -No old charts were reviewed Differential Diagnosis (chest pain, altered mental status, abdominal pain women, abdominal pain men, vaginal bleeding, weakness, fever, dyspnea, syncope, headache, dizziness, GI bleed, back pain, seizure, CVA, palpatations, mental health, musculoskeletal)? @ -dehydration, lab error, medication side effect, uti EKG interpreted by me (3pts min.). @ -As above X-rays interpreted by me (1pt min.). @ -None done CT interpreted by me (1pt min.). @ -None done U/S interpreted by me (1pt. min.). @ -None done What testing was considered but not performed or refused? (CT, X-rays, U/S, l abs)? Why? @ -None What meds were considered but not given or refused? Why? @ - Did you discuss the management of the patient with other professionals (professionals i.e. , PA, SUBSTATION SUPERVISOR, lab, RT, psych nurse, sr. social media & mobile manager, transportation broker, teacher, evp and chief operating officer, assistant case manager)? Give summary @ -admitting physician Was smoking cessation discussed for >3mins.? @ -No Was critical care preformed (if so, how long)? @ -No Were there social determinants of health that impacted care today? How? (Homelessness, low income, unemployed, alcoholism, drug addiction, transportation, low edu. Level, literacy, decrease access to med. care, usp, rehab)? @ -No Was there de-escalation of care discussed even if they declined (Discuss DNR or withdrawal of care, Hospice)? DNR status @ -No What co-morbidities impacted this encounter? (DM, HTN, Smoking, COPD, CAD, Cancer, CVA, ARF, Chemo, Hep., AIDS, mental health diagnosis, sleep apnea, morbid obesity)? @ -peripheral edema, recurrent uti Was patient admitted / discharged? Hospital course, mention meds given and route, prescriptions, significant lab abnormalities, going to OR and other pertinent info. @ -Upon arrival patient was placed into room 22. History and physical exam was performed. Labs are rechecked. Potassium is 2.3. Urinalysis does demonstrate nitrites and bacteria. Previous cultures are reviewed. Patient was started on Cipro. Potassium is replaced oral and IV. Recommended admission in order to recheck the patient's laboratory studies in the morning for which the patient was agreeable. Spoke with Kathy from [facility] who agree to admit the patient Undiagnosed new problem with uncertain prognosis? @ -No Drug Therapy requiring intensive monitoring for toxicity (Heparin, Nitro, Insulin, Cardizem)? @ -No Were any procedures done? @ -No Diagnosis/symptom? @ -acute hypokalemia, acute uti Acute, or Chronic, or Acute on Chronic? @ -acute Uncomplicated (without systemic symptoms) or Complicated (systemic symptoms)? @ -uncomplicated Side effects of treatment? @ -burning sensation in iv Exacerbation, Progression, or Severe Exacerbation? @ -No Poses a threat to life or bodily function? How? (Chest pain, [place], [place], pneumonia, PE, COPD, DKA, ARF, appy, cholecystitis, CVA, Diverticulitis, Homicidal, Suicidal, threat to staff... and all critical care pts) @ -yes - Lab Data Result diagrams: 05/08/22 04:41 05/08/22 04:41 Lab Results 05/07/22 05/07/22 05/07/22 Range/Units 16:29 16:29 16:29 WBC 8.1 (3.8-10.6) k/uL RBC 4.25 (3.80-5.40) m/uL Hgb 13.2 (11.4-16.0) gm/dL Hct 39.8 (34.0-46.0) % MCV 93.7 (80.0-100.0) fL MCH 31.1 (25.0-35.0) pg MCHC 33.2 (31.0-37.0) g/dL RDW 13.9 (11.5-15.5) % Plt Count 286 (150-450) k/uL MPV 6.5 Neutrophils % 74 % Lymphocytes % 15 % Monocytes % 7 % Eosinophils % 1 % Basophils % 1 % Neutrophils # 6.0 (1.3-7.7) k/uL Lymphocytes # 1.2 (1.0-4.8) k/uL Monocytes # 0.6 (0-1.0) k/uL Eosinophils # 0.1 (0-0.7) k/uL Basophils # 0.0 (0-0.2) k/uL Sodium 128 L (137-145) mmol/L Potassium 2.3 L* (3.5-5.1) mmol/L Chloride 86 L (98-107) mmol/L Carbon Dioxide 38 H (22-30) mmol/L Anion Gap 4 mmol/L BUN 21 H (7-17) mg/dL Creatinine 0.68 (0.52-1.04) mg/dL Est GFR (CKD-EPI)AfAm >90 (>60 ml/min/1.73 sqM) Est GFR (CKD-EPI)NonAf 78 (>60 ml/min/1.73 sqM) Glucose 97 (74-99) mg/dL Calcium 8.0 L (8.4-10.2) mg/dL Magnesium 2.0 (1.6-2.3) mg/dL Total Bilirubin 0.9 (0.2-1.3) mg/dL AST 20 (14-36) U/L ALT 12 (4-34) U/L Alkaline Phosphatase 92 (38-126) U/L Total Protein 5.7 L (6.3-8.2) g/dL Albumin 3.2 L (3.5-5.0) g/dL Urine Color Light Yellow Urine Appearance Clear (Clear) Urine pH 6.5 (5.0-8.0) Ur Specific [place] 1.006 (1.001-1.035) Urine Protein Negative (Negative) Urine Glucose (UA) Negative (Negative) Urine Ketones Negative (Negative) Urine Blood Large H (Negative) Urine Nitrite Positive H (Negative) Urine Bilirubin Negative (Negative) Urine Urobilinogen <2.0 (<2.0) mg/dL Ur Leukocyte Esterase Large H (Negative) Urine RBC 128 H (0-5) /hpf Urine WBC 18 H (0-5) /hpf Ur Squamous Epith Cells <1 (0-4) /hpf Amorphous Sediment Occasional H (None) /hpf Urine Bacteria Rare H (None) /hpf Hyaline Casts 1 (0-2) /lpf Urine Mucus Rare H (None) /hpf Disposition Clinical Impression: Hypokalemia, Weakness, UTI (urinary tract infection) Disposition: ADMITTED IP TO THIS [facility] Condition: Stable Is patient prescribed a controlled substance at d/c from ED?: No Time of Disposition: 18:00 Decision to Admit Reason: Admit from EC Decision Date: 05/07/22 Decision Time: 18:00
[2022-05-07 16:52] LABS: Basophils % (A) 1 %; Eosinophils # (A) 0.1 k/uL (0-0.7); Eosinophils % (A) 1 %; HCT 39.8 % (34.0-46.0); HGB 13.2 gm/dL (11.4-16.0); Lymphocytes # (A) 1.2 k/uL (1.0-4.8); Lymphocytes % (A) 15 %; MCH 31.1 pg (25.0-35.0); MCHC 33.2 g/dL (31.0-37.0); MCV 93.7 fL (80.0-100.0); Mean Platelet Volume 6.5; Monocytes # (A) 0.6 k/uL (0-1.0); Monocytes % (A) 7 %; Neutrophils % (A) 74 %; Platelet Count 286 k/uL (150-450); RBC 4.25 m/uL (3.80-5.40); RDW 13.9 % (11.5-15.5); WBC 8.1 k/uL (3.8-10.6)
[2022-05-07 17:07] LABS: Amorphous Sediment,Urine Occasional /hpf; Appearance,Urine Clear (Clear); Bacteria,Urine Rare /hpf; Bilirubin,Urine Negative (Negative); Blood,Urine Large (Negative); Color,Urine Light Yellow; Glucose,Urine (UA) Negative (Negative); Hyaline Casts,Urine 1 /lpf (0-2); Ketones,Urine Negative (Negative); Leukocyte Esterase,Urine Large (Negative); Mucus,Urine Rare /hpf; Nitrite,Urine Positive (Negative); PH, Urine 6.5 (5.0-8.0); Protein,Urine Negative (Negative); RBC,Urine 128 /hpf (0-5); Specific Gravity,Urine 1.006 (1.001-1.035); Squamous Epithelial Cell,Urine <1 /hpf (0-4); Urobilinogen,Urine <2.0 mg/dL (<2.0); WBC,Urine 18 /hpf (0-5)
[2022-05-07 17:17] LABS: ALT 12 U/L (4-34); AST 20 U/L (14-36); African American GFR (CKD) >90 (>60 ml/min/1.73 sqM); Albumin 3.2 g/dL (3.5-5.0); Alkaline Phosphatase 92 U/L (38-126); Anion Gap 4 mmol/L; Blood Urea Nitrogen 21 mg/dL (7-17); Carbon Dioxide 38 mmol/L (22-30); Chloride 86 mmol/L (98-107); Glucose 97 mg/dL (74-99); Non-African American GFR(CKD) 78 (>60 ml/min/1.73 sqM); Sodium 128 mmol/L (137-145); Total Bilirubin 0.9 mg/dL (0.2-1.3); Total Protein 5.7 g/dL (6.3-8.2)
[2022-05-07 17:31] LABS: Potassium 2.3 mmol/L (3.5-5.1)
[2022-05-07] MEDS ORDERED: LEVOFLOXACIN 750MG-D5W PMX 750 MG in DEXTROSE/WATER 1 150ML.BAG IVPB STA (17:52)
[2022-05-07] MEDS ORDERED: POTASSIUM CHLORIDE ER 20 MEQ TAB.ER PO STA (17:52)
[2022-05-07] MEDS ORDERED: NALOXONE 0.4 MG/ML 1 ML VIAL IV PRN (18:00)
[2022-05-07] MEDS: POTASSIUM CHLORIDE 10 MEQ in WATER FOR INJECTION 1 100ML.BAG IVPB SCH ×3 (18:21→23:31)
[2022-05-07] MEDS ORDERED: ACETAMINOPHEN TAB 325 MG TAB PO PRN (21:05)
[2022-05-07] MEDS ORDERED: POTASSIUM CHLORIDE ER 20 MEQ TAB.ER PO ONE (21:07)
[2022-05-07] MEDS ORDERED: Potassium Replacement Protocol 1 EACH MISC MISCELLANE PRN (21:07)
[2022-05-07] MEDS: APIXABAN 2.5 MG TABLET PO SCH (21:46)
[2022-05-08] MEDS: POTASSIUM CHLORIDE 10 MEQ in WATER FOR INJECTION 1 100ML.BAG IVPB SCH (01:10)
[2022-05-08] MEDS ORDERED: LEVOTHYROXINE 75 MCG TAB PO SCH (06:30)
[2022-05-08 07:32] VITALS: BP 114/72; PULSE 78; RESP 16; TEMP 98.1
[2022-05-08] MEDS ORDERED: NON FORMULARY DRUG (Potassium Citrate [Potassium Citrate] 99 MG Capsule) PO SCH (08:30)
[2022-05-08] MEDS: APIXABAN 2.5 MG TABLET PO SCH (09:13)
[2022-05-08 09:16] LABS: Basophils # (A) 0.03 X 10*3/uL (0.00-0.10); Basophils % (A) 0.4 %; Eosinophils # (A) 0.07 X 10*3/uL (0.04-0.35); HCT 34.4 % (37.2-46.3); HGB 11.3 g/dL (12.0-15.0); Immature Grans, Automated 0.3 %; Lymphocytes # (A) 1.39 X 10*3/uL (0.90-5.00); Lymphocytes % (A) 20.6 %; MCH 31.4 pg (27.0-32.0); MCHC 32.8 g/dL (32.0-37.0); MCV 95.6 fL (80.0-97.0); Mean Platelet Volume 8.7 fL (9.5-12.2); Monocytes # (A) 0.84 X 10*3/uL (0.20-1.00); Monocytes % (A) 12.5 %; NRBC Per 100 WBC 0 /100 WBCS (0.0-0.0); Neutrophils # (A) 4.39 X 10*3/uL (1.80-7.70); Neutrophils % (A) 65.2 %; Platelet Count 227 X 10*3/uL (140-440); RDW 14.8 % (11.5-14.5); WBC 6.74 X 10*3/uL (4.50-10.00)
[2022-05-08 09:31] LABS: African American GFR (CKD) 94.3 (60.0-200.0); Anion Gap 7.3 mmol/L (10.00-18.00); Blood Urea Nitrogen 15.6 mg/dL (9.0-27.0); Calcium 8.1 mg/dL (8.7-10.3); Carbon Dioxide 35.7 mmol/L (20.0-27.5); Non-African American GFR(CKD) 81.4 (60.0-200.0); Potassium 3.6 mmol/L (3.5-5.5)
[2022-05-08] MEDS ORDERED: Potassium Replacement Protocol 1 EACH MISC MISCELLANE PRN (09:46)
[2022-05-08] MEDS: POTASSIUM CHLORIDE ER 20 MEQ TAB.ER PO SCH ×2 (10:30→11:39)
--- NOTE | 2022-05-08 14:34 | P.HPIM ---
History of Present Illness H&P Date: 05/08/22 This is a very pleasant 86-year-old female who presented to the emergency department after being sent by primary care provider for low potassium. Potassium was found to be 2.3. Patient has been on Lasix in the outpatient setting for lower extremity edema and also noted to have low potassium was instructed by primary care provider to start potassium supplementation with follow-up labs. Patient was sent to the ER for further evaluation. Patient does have caregivers in the outpatient setting and lives directly across the [place] from family. Patient follows with Dr. Roberto in the outpatient setting with a past medical history of atrial fibrillation, hypertension, recent UTI with retention requiring indwelling Mckinley catheter. Labs revealed a WBC of 8.1, hemoglobin 13.2, sodium was 128, potassium 2.3, BUN 21, creatinine 0.68, magnesium 2.0, urinalysis that was taken from the Mckinley bag showing positive nitrates and large leukocyte esterase. Patient has been most recently maintai jovita on antibiotics in the outpatient setting approximately 1 month ago and denies any pain or burning with urination and has not been febrile denies any shortness of breath or infectious process. Patient was admitted under observation for hypokalemia. Review Of Systems: Constitutional: No fever, no chills, no night sweats. No weight change. No weakness, fatigue or lethargy. No daytime sleepiness. EENT: No headache. No blurred vision or double vision, no loss of vision. No loss of Hearing, no ringing in the ears, no dizziness. No nasal drainage or congestion. No epistaxis. No sore throat. Lungs: No shortness of breath, cough, no sputum production. No wheezing. Cardiovascular: No chest pain, no lower extremity edema. No palpitations. No paroxysmal nocturnal dyspnea. No orthopnea. No lightheadedness or dizziness. No syncopal episodes. Abdominal: No abdominal pain. No nausea, vomiting. No diarrhea. No constipation. No bloody or tarry stools.. Reports loss of appetite. Genitourinary: No dysuria, increased frequency, urgency. No urinary retention. Musculoskeletal: No myalgias. No muscle weakness, no gait dysfunction, no frequent falls. No back pain. No neck pain. Integumentary: No wounds, no lesions. No rash or pruritus. No unusual bruising. No change in hair or nails. Neurologic: No aphasia. No facial droop. No change in mentation. No head injury. No headache. No paralysis. No paresthesia. Psychiatric: No depression. No anxiety. No mood swings. Endocrine: No abnormal blood sugars. No weight change. No excessive sweating or thirst. No cold intolerance. PHYSICAL EXAMINATION: GENERAL: The patient is alert and oriented x4, thin built, elderly appearing female HEENT: Pupils are round and equally reacting to light. EOMI. no scleral icterus. No conjunctival pallor. Normocephalic, atraumatic. No pharyngeal erythema. No thyromegaly. CARDIOVASCULAR: S1 and S2 muffled PULMONARY: diminished breath sounds bilaterally otherwise clear to auscultation with no wheezing or rhonchi noted. ABDOMEN: soft. Nontender on exam. non-distended, normoactive bowel sounds. No palpable organomegaly. MUSCULOSKELETAL: No joint swelling or deformity. EXTREMITIES: No cyanosis, clubbing, or pedal edema. NEUROLOGICAL: Gross neurological examination did not reveal any focal deficits. Diffuse weakness SKIN: No rashes. Assessment: Hypokalemia, possibly secondary to poor oral intake as well as diuretic therapy, 2.3 on admission Lactic acidosis, present on admission, secondary to above, improved History of hypertension History of atrial fibrillation Moderate protein calorie malnutrition with a BMI of 19.7 Possible acute urinary tract infection, present on admission, ruled out. Likely asymptomatic bacteriuria Hypovolemic hyponatremia, secondary to poor oral intake, improved with fluids GI prophylaxis DVT prophylaxis Full code Plan: Recommend to continue with current medications and management and potassium supplementation. Potassium was found to be 2.3 on admission and replaced with aggressive protocol replacement and is currently 3.6 and will give 40 meq today and continue on 20 mg twice daily supplementation in the outpatient setting along with recommended repeat labs in the next few days Patient sodium improved with gentle IV hydration and currently within normal limits Patient having some decreased appetite and poor oral intake would recommend low- dose Marinol appetite stimulant and discussing with primary care provider in the outpatient setting. [id number] at the bedside with questions and concerns were answered Patient with indwelling Mckinley catheter for retention and recently outpatient UTI recommend replacing Mckinley catheter as urine was showing positive nitrates and leukocyte esterase although the specimen was obtained from the Mckinley bag. Discussed with nursing staff about replacing indwelling Mckinley catheter prior to discharge. Likely asymptomatic bacteriuria as patient denies any pain, frequency, burning or irritation with voiding. She does not have a white count and is afebrile Patient is weak and evaluated by physical therapy although does have multiple family members that live close by and support in the outpatient setting. Heauarmh-yb-pfm at the bedside would like to take the patient home today if possible Patient will be discharged home today after supplementation of potassium The impression and plan of care has been dictated by Kathy Rodriguez, nurse practitioner as directed. Dr. America MD I have performed a history and examination and MDM of this patient, discussed the same with the dictator, and agree with the dictator's assessment and plan as written ,documented as a scribe. Based on total visit time, I have performed more than 50% of the visit. Any additional findings or plans will be noted. Past Medical History Past Medical History: Atrial Fibrillation, Hypertension History of Any Multi-Drug Resistant Organisms: None Reported Past Surgical History: Hernia Repair, Hysterectomy Past Anesthesia/Blood Transfusion Reactions: No Reported Reaction Past Psychological History: No Psychological Hx Reported Smoking Status: Never smoker Past Alcohol Use History: None Reported Past Drug Use History: None Reported Medications and Allergies Home Medications Medication Instructions Recorded Confirmed Type Apixaban [Eliquis] 2.5 mg PO BID 04/06/22 05/07/22 History Furosemide [Lasix] 40 mg PO DAILY 04/06/22 05/07/22 History Acetaminophen Tab [Tylenol] 650 mg PO Q6HR PRN tab 04/09/22 05/07/22 Rx Levothyroxine Sodium [Synthroid] 75 mcg PO DAILY@0630 05/07/22 05/07/22 History Potassium Chloride [K-Tab ER] 20 meq PO BID 30 Days #60 tab 05/08/22 Rx dronabinoL [Marinol] 2.5 mg PO DAILY #10 cap 05/08/22 Rx Allergies Allergy/AdvReac Type Severity Reaction Status Date / Time No Known Allergies Allergy Verified 05/07/22 17:35 Physical Exam Vitals: Vital Signs Temp Pulse Pulse Resp BP BP Pulse Ox 05/08/22 07:15 98.1 F 78 16 114/72 96 05/08/22 02:19 97.6 F 86 18 117/70 96 05/07/22 22:00 18 05/07/22 21:45 98.6 F 94 16 109/72 96 05/07/22 19:08 86 18 108/79 97 05/07/22 15:44 98.9 F 92 16 115/73 97 Intake and Output 05/07/22 05/08/22 05/08/22 22:59 06:59 14:59 Intake Total 950 Output Total 500 300 125 Balance -500 650 -125 Intake: Intake, IV Titration 450 Amount Levofloxacin 750Mg-D5w 150 Pmx 750 mg In Dextrose/ Water 1 150ml.bag @ 100 mls/hr IVPB ONCE STA Rx#: [id number] Potassium Chloride 10 meq 300 In Water For Injection 1 100ml.bag @ 100 mls/hr IVPB Q1HR [facility] Rx#: [id number] Oral 500 Output: Urine 500 300 125 Other: Voiding Method Indwelling Catheter Weight 52.163 kg Results CBC & Chem 7: 05/08/22 04:41 05/08/22 04:41 Labs: Abnormal Lab Results - Last 24 Hours (Table) 05/07/22 05/07/22 05/08/22 Range/Units 16:29 16:29 04:41 RBC 3.60 L (4.10-5.20) X 10*6/uL Hgb 11.3 L (12.0-15.0) g/dL Hct 34.4 L (37.2-46.3) % RDW 14.8 H (11.5-14.5) % MPV 8.7 L (9.5-12.2) fL Sodium 128 L (137-145) mmol/L Potassium 2.3 L* (3.5-5.1) mmol/L Chloride 86 L (98-107) mmol/L Carbon Dioxide 38 H (22-30) mmol/L Anion Gap (10.00-18.00) mmol/L BUN 21 H (7-17) mg/dL BUN/Creatinine Ratio (12.00-20.00) Ratio Calcium 8.0 L (8.4-10.2) mg/dL Total Protein 5.7 L (6.3-8.2) g/dL Albumin 3.2 L (3.5-5.0) g/dL Urine Blood Large H (Negative) Urine Nitrite Positive H (Negative) Ur Leukocyte Esterase Large H (Negative) Urine RBC 128 H (0-5) /hpf Urine WBC 18 H (0-5) /hpf Amorphous Sediment Occasional H (None) /hpf Urine Bacteria Rare H (None) /hpf Urine Mucus Rare H (None) /hpf 05/08/22 Range/Units 04:41 RBC (4.10-5.20) X 10*6/uL Hgb (12.0-15.0) g/dL Hct (37.2-46.3) % RDW (11.5-14.5) % MPV (9.5-12.2) fL Sodium (137-145) mmol/L Potassium (3.5-5.1) mmol/L Chloride 92 L (98-107) mmol/L Carbon Dioxide 35.7 H (22-30) mmol/L Anion Gap 7.30 L (10.00-18.00) mmol/L BUN (7-17) mg/dL BUN/Creatinine Ratio 26.00 H (12.00-20.00) Ratio Calcium 8.1 L (8.4-10.2) mg/dL Total Protein (6.3-8.2) g/dL Albumin (3.5-5.0) g/dL Urine Blood (Negative) Urine Nitrite (Negative) Ur Leukocyte Esterase (Negative) Urine RBC (0-5) /hpf Urine WBC (0-5) /hpf Amorphous Sediment (None) /hpf Urine Bacteria (None) /hpf Urine Mucus (None) /hpf Microbiology - Last 24 Hours (Table) 05/07/22 16:29 Urine Culture - Preliminary Urine,Voided Thrombosis Risk Factor Assmnt - Choose All That Apply Any of the Below Risk Factors Present?: Yes Each Factor Represents 1 point: Swollen legs (current) Other Risk Factors: Yes Each Risk Factor Represents 3 Points: Age 75 years or older Other congenital or acquired thrombophilia - If yes, enter type in comment: No Thrombosis Risk Factor Assessment Total Risk Factor Score: 4 Thrombosis Risk Factor Assessment Level: Moderate Risk Assessment and Plan Time with Patient: Greater than 30
--- NOTE | 2022-05-08 14:38 | P.DS ---
Providers Date of admission: 05/07/22 18:02 Expected date of discharge: 05/08/22 Attending physician: Irene Villalba Primary care physician: Leslie Roberto [facility] Course: Final diagnosis Hypokalemia, possibly secondary to poor oral intake as well as diuretic therapy, 2.3 on admission Lactic acidosis, present on admission, secondary to above, improved History of hypertension History of atrial fibrillation Moderate protein calorie malnutrition with a BMI of 19.7 Possible acute urinary tract infection, present on admission, ruled out. Likely asymptomatic bacteriuria Hypovolemic hyponatremia, secondary to poor oral intake, improved with fluids GI prophylaxis DVT prophylaxis Full code Discharge disposition Patient is being discharged in a stable condition with guarded prognosis to home with home care. Patient will follow-up with Dr. Roberto in the outpatient setting upon discharge. Patient is to continue with potassium supplementation 20 meq twice daily and recommended repeat labs. Prescription provided for follow-up labs in the outpatient setting. Total time taken is greater than 35 minutes. Hospital course This is a 86-year-old female who was recently admitted after being sent from primary care provider's office for low potassium and potassium was found to be 2.3. Patient also with indwelling Mckinley catheter and a specimen in the ER was obtained from the Mckinley bag showing positive nitrates and leukocyte Estrace although patient is denying any fevers, shortness of breath, pain, dysuria, frequency. Would recommend indwelling Mckinley catheter replacement and outpatient follow-up. Patient will be given potassium supplementation prescription and recommend repeat labs in the next 2-3 days. Patient with some weakness although multiple family members live close by and her son lives with her were able to care for her. Family at the bedside with like to take the patient home today. Patient encouraged oral intake and reports has little to no appetite most recently she was concerned about her salt intake and being on Lasix therapy with the swelling of the extremities and would recommend a very low dose appetite stimulant to trial and discuss further with primary care provider. Patient and family agreeable. Patient's potassium was replaced and 3.6 this morning and will give 40 meq today and recommend continue supplementation. Currently no reports of chest pain, shortness of breath, or palpitations. Patient is afebrile. No reports of nausea or vomiting and patient is tolerating diet. Patient will be discharged home today. Guarded prognosis. Physical exam: Gen: This is a 86-year-old female who is awake, alert and oriented 3, thin built, elderly appearing female HEENT: Head is atraumatic, normocephalic. Pupils equal, round. Sclerae is anicteric. NECK: Supple. No JVD. No lymphadenopathy. No thyromegaly. LUNGS: Clear to auscultation. No wheezes or rhonchi. No intercostal retractions. HEART: Regular rate and rhythm. No murmur. ABDOMEN: Soft. Bowel sounds are present. No masses. No tenderness. EXTREMITIES: No pedal edema. No calf tenderness. NEUROLOGICAL: Patient is awake, alert and oriented x3. Cranial nerves 2 through 12 are grossly intact. Diffusely weak Please refer to medication reconciliation sheet for a list of medications. The impression and plan of care has been dictated by Kathy Rodriguez, Nurse Practitioner as directed. Dr. America MD I have performed a history and examination and MDM of this patient, discussed the same with the dictator, and agree with the dictator's assessment and plan as written ,documented as a scribe. Based on total visit time, I have performed more than 50% of the visit. Patient Condition at Discharge: Stable Plan - Discharge Summary Discharge Rx Participant: No New Discharge Prescriptions: New dronabinoL [Marinol] 2.5 mg PO DAILY #10 cap Potassium Chloride [K-Tab ER] 20 meq PO BID 30 Days #60 tab Continue Apixaban [Eliquis] 2.5 mg PO BID Furosemide [Lasix] 40 mg PO DAILY Levothyroxine Sodium [Synthroid] 75 mcg PO DAILY@0630 Acetaminophen Tab [Tylenol] 650 mg PO Q6HR PRN tab PRN Reason: Mild Pain Or Fever > 100.5 Discontinued Potassium Citrate 99 mg PO -[facility] Discharge Medication List Apixaban [Eliquis] 2.5 mg PO BID 04/06/22 [History] Furosemide [Lasix] 40 mg PO DAILY 04/06/22 [History] Acetaminophen Tab [Tylenol] 650 mg PO Q6HR PRN tab 04/09/22 [Rx] Levothyroxine Sodium [Synthroid] 75 mcg PO DAILY@0630 05/07/22 [History] Potassium Chloride [K-Tab ER] 20 meq PO BID 30 Days #60 tab 05/08/22 [Rx] dronabinoL [Marinol] 2.5 mg PO DAILY #10 cap 05/08/22 [Rx] Follow up Appointment(s)/Referral(s): Leslie Roberto [Primary Care Provider] - 1-2 days (Patient's son and daughter -in-law stated that they will make follow-up appointment) Ambulatory/Diagnostic Orders: Basic Metabolic Panel [LAB.AMB] Time Frame: 3 Days, Location: None Selected Patient Instructions/Handouts: Potassium Chloride (By mouth), Dronabinol (By mouth), Dehydration (DC), Hyponatremia (DC), Hypokalemia (DC) Activity/Diet/Wound Care/Special Instructions: Activity Limited until follow-up Follow-up primary care provider on discharge Continue taking medications as prescribed Discussed with primary care provider about appetite stimulant Discharge Disposition: HOME SELF-CARE
== END 2022-05-08 13:37 | disposition home or self-care (01) ==
LOC: EC 15:19 → INTOOBSV 18:02 → 5NMEDONC 18:02 → UNDODISIN 05-08 13:37
PROVIDERS: ADMIT Hospitalist; ATTEND Hospitalist
DX: E87.6 Hypokalemia (principal); E87.20 Acidosis, unspecified; I48.91 Unspecified atrial fibrillation; I10 Essential (primary) hypertension; R60.0 Localized edema; E44.0 Moderate protein-calorie malnutrition; Z68.1 Body mass index [BMI] 19.9 or less, adult; E86.1 Hypovolemia; R53.1 Weakness; R60.9 Edema, unspecified; E87.1 Hypo-osmolality and hyponatremia; Z79.01 Long term (current) use of anticoagulants; Z79.899 Other long term (current) drug therapy; Z79.890 Hormone replacement therapy; Z90.710 Acquired absence of both cervix and uterus; Z71.3 Dietary counseling and surveillance; Z87.440 Personal history of urinary (tract) infections
CPT/HCPCS: 96366 ×3; 96368; 96365; 99285; 36415; 97162; 80053; 80048; 83735 ×2; 85025 ×2; 81001; 87086; 87077; 87186; 51702; J1956; J3480 ×2

== ENCOUNTER 2022-06-24 15:44 | Emergency (ER) | payer MEDICARE ==
[2022-06-24 15:56] VITALS: RESP 18
[2022-06-24 17:08] LABS: Basophils % (A) 0 %; Eosinophils # (A) 0.1 k/uL (0-0.7); Eosinophils % (A) 1 %; HCT 34.8 % (34.0-46.0); HGB 11.9 gm/dL (11.4-16.0); Lymphocytes % (A) 14 %; MCH 32.2 pg (25.0-35.0); MCHC 34.1 g/dL (31.0-37.0); MCV 94.7 fL (80.0-100.0); Mean Platelet Volume 6.9; Monocytes # (A) 0.6 k/uL (0-1.0); Monocytes % (A) 8 %; Neutrophils # (A) 5.4 k/uL (1.3-7.7); Neutrophils % (A) 75 %; Platelet Count 267 k/uL (150-450); RBC 3.68 m/uL (3.80-5.40); RDW 14.7 % (11.5-15.5); WBC 7.2 k/uL (3.8-10.6)
--- NOTE | 2022-06-24 17:15 | XR ---
EXAMINATION TYPE: XR chest 2V DATE OF EXAM: 06/24/2022 5:02 PM COMPARISON: Chest x-ray 04/06/2022, chest x-ray 09/22/2020 TECHNIQUE: XR chest 2V . CLINICAL INDICATION:Female, 86 years old with history of lower extremity swelling; FINDINGS: Lungs/Pleura: There is increased lucency of the lungs. No evidence of pneumothorax, pleural effusion or focal consolidation. Stable eventration of the right hemidiaphragm. Pulmonary vascularity: Unremarkable. Heart/mediastinum: Cardiomediastinal silhouette is enlarged and stable. Atherosclerotic calcificatio ns are seen in the aorta. Musculoskeletal: Degenerative changes of the dorsal spine. Chronic appearing deformity of the left hu meral head. IMPRESSION: 1. No acute cardiopulmonary disease process. 2. COPD changes.
[2022-06-24 17:24] LABS: ALT 13 U/L (4-34); AST 20 U/L (14-36); African American GFR (CKD) >90 (>60 ml/min/1.73 sqM); Albumin 2.8 g/dL (3.5-5.0); Alkaline Phosphatase 59 U/L (38-126); Anion Gap 8 mmol/L; Blood Urea Nitrogen 21 mg/dL (7-17); Calcium 8.1 mg/dL (8.4-10.2); Carbon Dioxide 26 mmol/L (22-30); Chloride 94 mmol/L (98-107); Glucose 90 mg/dL (74-99); Non-African American GFR(CKD) 82 (>60 ml/min/1.73 sqM); Potassium 3.9 mmol/L (3.5-5.1); Sodium 128 mmol/L (137-145); Total Bilirubin 0.8 mg/dL (0.2-1.3); Total Protein 4.8 g/dL (6.3-8.2)
--- NOTE | 2022-06-24 17:30 | ED ---
General Adult HPI - General Chief complaint: Extremity Injury, Lower Stated complaint: Leg swelling Time Seen by Provider: 06/24/22 16:02 Source: patient Mode of arrival: ambulatory Limitations: no limitations - History of Present Illness Initial comments: Patient is an 86 year old female who presents to the emergency department for leg swelling. Patient has history of lower extremity edema. She used to take Lasix daily which was recently switched to spironolactone due to hypokalemia. Family states her legs are normally swollen but the swelling is increased over the past 2-3 days. Patient denies any leg pain. She denies chest pain and shortness of breath. Patient also reports weakness. She has been more fatigued when walking around in her home. She denies a fever, chills, cold-like symptoms, cough. Patient has a chronic indwelling Mckinley catheter states she feels that the urine is not flowing well. She denies abdominal pain, nausea, vomiting. - Related Data Home Medications Medication Instructions Recorded Confirmed Apixaban [Eliquis] 2.5 mg PO BID 04/06/22 05/07/22 Furosemide [Lasix] 40 mg PO DAILY 04/06/22 05/07/22 Levothyroxine Sodium [Synthroid] 75 mcg PO DAILY@0630 05/07/22 05/07/22 Previous Rx's Medication Instructions Recorded Acetaminophen Tab [Tylenol] 650 mg PO Q6HR PRN tab 04/09/22 Potassium Chloride [K-Tab ER] 20 meq PO BID 30 Days #60 tab 05/08/22 dronabinoL [Marinol] 2.5 mg PO DAILY #10 cap 05/08/22 Furosemide [Lasix] 20 mg PO DAILY #3 tab 06/24/22 Levofloxacin [Levaquin] 750 mg PO DAILY #10 tab 06/24/22 Allergies Allergy/AdvReac Type Severity Reaction Status Date / Time iodine Allergy Unknown Verified 06/24/22 15:56 Review of Systems ROS Statement: Those systems with pertinent positive or pertinent negative responses have been documented in the HPI. ROS Other: All systems not noted in ROS Statement are negative. Past Medical History Past Medical History: Atrial Fibrillation, Hypertension History of Any Multi-Drug Resistant Organisms: None Reported Past Surgical History: Hernia Repair, Hysterectomy Past Anesthesia/Blood Transfusion Reactions: No Reported Reaction Past Psychological History: No Psychological Hx Reported Smoking Status: Never smoker Past Alcohol Use History: None Reported Past Drug Use History: None Reported General Exam Limitations: no limitations General appearance: alert, in no apparent distress Head exam: Present: atraumatic, normocephalic, normal inspection Eye exam: Present: normal appearance, PERRL, EOMI. Absent: scleral icterus, conjunctival injection, periorbital swelling Respiratory exam: Present: normal lung sounds bilaterally. Absent: respiratory distress, wheezes, rales, rhonchi, stridor Cardiovascular Exam: Present: regular rate, irregular rhythm (patient has known a fib ), normal heart sounds. Absent: normal rhythm, systolic murmur, diastolic murmur, rubs, gallop, clicks GI/Abdominal exam: Present: soft, normal bowel sounds. Absent: distended, tenderness, guarding, rebound, rigid Extremities exam: Present: full ROM, normal capillary refill, pedal edema (3+ bilateral non tender. DP 2+. ), other (skin tear right lower leg in middle lateral region ). Absent: normal inspection, tenderness, calf tenderness Neurological exam: Present: alert, oriented X3, CN II-XII intact Psychiatric exam: Present: normal affect, normal mood Skin exam: Present: warm, dry, intact, normal color. Absent: rash Course Vital Signs 06/24/22 06/24/22 06/24/22 15:50 18:00 19:00 Temperature 98.5 F 98.4 F Pulse Rate 95 89 82 Respiratory 18 18 18 Rate Blood Pressure 129/82 125/71 119/78 O2 Sat by Pulse 96 99 Oximetry Medical Decision Making - Medical Decision Making EKG taken at 17:10, interpreted by me Atrial fibrillation, moderate left ventricular hypertrophy, Q wave repolarization changes, no new ST segment or T-wave abnormality Ventricular rate 80, QRS duration 85, QTc 405 Was pt. sent in by a medical professional or institution (, PA, DRUM PULLER, urgent care, hospital, or long-term...) When possible be specific @ -No Did you speak to anyone other than the patient for history (EMS, parent, family, police, friend...)? What history was obtained from this source @ -Family helped provide history. Did you review nursing and triage notes (agree or disagree)? Why? @ -I reviewed and agree with nursing and triage notes Were old charts reviewed (outside hosp., previous admission, EMS record, old EKG, old radiological studies, urgent care reports/EKG's, long-term records)? Report findings @ -Review of previous echocardiogram from August 2020 showing normal left ventricular size and ejection fraction 55-60% Differential Diagnosis (chest pain, altered mental status, abdominal pain women, abdominal pain men, vaginal bleeding, weakness, fever, dyspnea, syncope, headache, dizziness, GI bleed, back pain, seizure, CVA, palpatations, mental health)? @ -Dependent edema, heart failure, DVT, cellulitis. This list is not meant to be all-inclusive EKG interpreted by me (3pts min.). @ -As above X-rays interpreted by me (1pt min.). @ -Yes, chest x-ray negative for acute process CT interpreted by me (1pt min.). @ -None done U/S interpreted by me (1pt. min.). @ -None done What testing was considered but not performed or refused? (CT, X-rays, U/S, labs)? Why? @ -None What meds were considered but not given or refused? Why? @ -None Did you discuss the management of the patient with other professionals (professionals i.e. , PA, DRUM P[employer]ER, lab, RT, psych nurse, social science instructor, elevator constructor helper, teacher, identification officer, vocational case manager)? Give summary @ -No Was smoking cessation discussed for >3mins.? @ -No Was critical care preformed (if so, how long)? @ -No Were there social determinants of health that impacted care today? How? (Homelessness, low income, unemployed, alcoholism, drug addiction, transportation, low edu. Level, literacy, decrease access to med. care, nursing home, rehab)? @ -No Was there de-escalation of care discussed even if they declined (Discuss DNR or withdrawal of care, Hospice)? DNR status @ -No What co-morbidities impacted this encounter? (DM, HTN, Smoking, COPD, CAD, Cancer, CVA, ARF, Chemo, Hep., AIDS, mental health diagnosis, sleep apnea, morbid obesity)? @ -None Was patient admitted / discharged? Hospital course, mention meds given and route, prescriptions, significant lab abnormalities, going to OR and other pertinent info. @ -Patient presenting for lower extremity edema and weakness. Patient has bilateral 3+ pitting edema. No calf tenderness. DP 2+ bilaterally. No chest pain or shortness of breath. EKG shows A. fib patient has known history. Troponin and BNP within normal limits. Chest x-ray shows no acute process. Urinalysis shows significant infection. Mckinley catheter was changed patient given IV levofloxacin. She was also given IV Lasix acute on chronic pitting edema. Patient is afebrile, no nausea or vomiting. Previous urine culture reviewed. She will be discharged with Levaquin for urinary tract infection. Patient will also be discharged with a short prescription of lasix at lower dose for increased lower extremity edema. She will need to follow up with her primary care provider for further management. Strict return parameters discussed. Undiagnosed new problem with uncertain prognosis? @ -No Drug Therapy requiring intensive monitoring for toxicity (Heparin, Nitro, Insulin, Cardizem)? @ -No Were any procedures done? @ -No Diagnosis/symptom? @ -lower extremity swelling Acute, or Chronic, or Acute on Chronic? @ -acute on chronic Uncomplicated (without systemic symptoms) or Complicated (systemic symptoms)? @ -uncomplicated Side effects of treatment? @ -No Exacerbation, Progression, or Severe Exacerbation? @ -No Poses a threat to life or bodily function? How? (Chest pain, [place], [place], pneumonia, PE, COPD, DKA, ARF, appy, cholecystitis, CVA, Diverticulitis, Homicidal, Suicidal, threat to staff... and all critical care pts) @ -No Diagnosis/symptom? @ -UTI Acute, or Chronic, or Acute on Chronic? @ -acute Uncomplicated (without systemic symptoms) or Complicated (systemic symptoms)? @ -uncomplicated Side effects of treatment? @ -none Exacerbation, Progression, or Severe Exacerbation] @ -no Poses a threat to life or bodily function? @ -no Dr. Naylor is my attending - Lab Data Result diagrams: 06/24/22 16:49 06/24/22 16:49 Lab Results 06/24/22 06/24/22 06/24/22 Range/Units 16:49 16:49 16:49 WBC 7.2 (3.8-10.6) k/uL RBC 3.68 L (3.80-5.40) m/uL Hgb 11.9 (11.4-16.0) gm/dL Hct 34.8 (34.0-46.0) % MCV 94.7 (80.0-100.0) fL MCH 32.2 (25.0-35.0) pg MCHC 34.1 (31.0-37.0) g/dL RDW 14.7 (11.5-15.5) % Plt Count 267 (150-450) k/uL MPV 6.9 Neutrophils % 75 % Lymphocytes % 14 % Monocytes % 8 % Eosinophils % 1 % Basophils % 0 % Neutrophils # 5.4 (1.3-7.7) k/uL Lymphocytes # 1.0 (1.0-4.8) k/uL Monocytes # 0.6 (0-1.0) k/uL Eosinophils # 0.1 (0-0.7) k/uL Basophils # 0.0 (0-0.2) k/uL Sodium 128 L (137-145) mmol/L Potassium 3.9 (3.5-5.1) mmol/L Chloride 94 L (98-107) mmol/L Carbon Dioxide 26 (22-30) mmol/L Anion Gap 8 mmol/L BUN 21 H (7-17) mg/dL Creatinine 0.60 (0.52-1.04) mg/dL Est GFR (CKD-EPI)AfAm >90 (>60 ml/min/1.73 sqM) Est GFR (CKD-EPI)NonAf 82 (>60 ml/min/1.73 sqM) Glucose 90 (74-99) mg/dL Calcium 8.1 L (8.4-10.2) mg/dL Total Bilirubin 0.8 (0.2-1.3) mg/dL AST 20 (14-36) U/L ALT 13 (4-34) U/L Alkaline Phosphatase 59 (38-126) U/L Troponin I <0.012 (0.000-0.034) ng/mL NT-Pro-B Natriuret Pep pg/mL Total Protein 4.8 L (6.3-8.2) g/dL Albumin 2.8 L (3.5-5.0) g/dL Urine Color Urine Appearance (Clear) Urine pH (5.0-8.0) Ur Specific [place] (1.001-1.035) Urine Protein (Negative) Urine Glucose (UA) (Negative) Urine Ketones (Negative) Urine Blood (Negative) Urine Nitrite (Negative) Urine Bilirubin (Negative) Urine Urobilinogen (<2.0) mg/dL Ur Leukocyte Esterase (Negative) Urine RBC (0-5) /hpf Urine WBC (0-5) /hpf Urine WBC Clumps (None) /hpf Ur Squamous Epith Cells (0-4) /hpf Urine Bacteria (None) /hpf Urine Mucus (None) /hpf 06/24/22 06/24/22 Range/Units 16:49 16:49 WBC (3.8-10.6) k/uL RBC (3.80-5.40) m/uL Hgb (11.4-16.0) gm/dL Hct (34.0-46.0) % MCV (80.0-100.0) fL MCH (25.0-35.0) pg MCHC (31.0-37.0) g/dL RDW (11.5-15.5) % Plt Count (150-450) k/uL MPV Neutrophils % % Lymphocytes % % Monocytes % % Eosinophils % % Basophils % % Neutrophils # (1.3-7.7) k/uL Lymphocytes # (1.0-4.8) k/uL Monocytes # (0-1.0) k/uL Eosinophils # (0-0.7) k/uL Basophils # (0-0.2) k/uL Sodium (137-145) mmol/L Potassium (3.5-5.1) mmol/L Chloride (98-107) mmol/L Carbon Dioxide (22-30) mmol/L Anion Gap mmol/L BUN (7-17) mg/dL Creatinine (0.52-1.04) mg/dL Est GFR (CKD-EPI)AfAm (>60 ml/min/1.73 sqM) Est GFR (CKD-EPI)NonAf (>60 ml/min/1.73 sqM) Glucose (74-99) mg/dL Calcium (8.4-10.2) mg/dL Total Bilirubin (0.2-1.3) mg/dL AST (14-36) U/L ALT (4-34) U/L Alkaline Phosphatase (38-126) U/L Troponin I (0.000-0.034) ng/mL NT-Pro-B Natriuret Pep 222 pg/mL Total Protein (6.3-8.2) g/dL Albumin (3.5-5.0) g/dL Urine Color Yellow Urine Appearance Cloudy H (Clear) Urine pH 7.0 (5.0-8.0) Ur Specific [place] 1.010 (1.001-1.035) Urine Protein 2+ H (Negative) Urine Glucose (UA) Negative (Negative) Urine Ketones Negative (Negative) Urine Blood Large H (Negative) Urine Nitrite Positive H (Negative) Urine Bilirubin Negative (Negative) Urine Urobilinogen <2.0 (<2.0) mg/dL Ur Leukocyte Esterase Large H (Negative) Urine RBC >182 H (0-5) /hpf Urine WBC >182 H (0-5) /hpf Urine WBC Clumps Many H (None) /hpf Ur Squamous Epith Cells 1 (0-4) /hpf Urine Bacteria Moderate H (None) /hpf Urine Mucus Rare H (None) /hpf Disposition Clinical Impression: Swelling of both lower extremities, UTI (urinary tract infection) Disposition: HOME SELF-CARE Condition: Good Instructions (If sedation given, give patient instructions): Leg Edema (ED) Additional Instructions: Elevate the legs and continue compression. Take medication as directed. Follow-up with primary care provider in one to 2 days. Return to the emergency department if you experience new, concerning, or worsening symptoms. Prescriptions: Furosemide [Lasix] 20 mg PO DAILY #3 tab Levofloxacin [Levaquin] 750 mg PO DAILY #10 tab Is patient prescribed a controlled substance at d/c from ED?: No Referrals: Leslie Roberto [Primary Care Provider] - 1-2 days
[2022-06-24 17:31] LABS: Appearance,Urine Cloudy (Clear); Bacteria,Urine Moderate /hpf; Bilirubin,Urine Negative (Negative); Blood,Urine Large (Negative); Color,Urine Yellow; Glucose,Urine (UA) Negative (Negative); Ketones,Urine Negative (Negative); Leukocyte Esterase,Urine Large (Negative); Mucus,Urine Rare /hpf; Nitrite,Urine Positive (Negative); Protein,Urine 2+ (Negative); RBC,Urine >182 /hpf (0-5); Squamous Epithelial Cell,Urine 1 /hpf (0-4); Urobilinogen,Urine <2.0 mg/dL (<2.0); WBC,Urine >182 /hpf (0-5)
[2022-06-24] MEDS ORDERED: LEVOFLOXACIN 750MG-D5W PMX 750 MG in DEXTROSE/WATER 1 150ML.BAG IVPB STA (17:40)
[2022-06-24] MEDS ORDERED: FUROSEMIDE 10 MG/ML 4 ML VIAL IV STA (18:00)
[2022-06-24 19:35] VITALS: BP 119/78; PULSE 82; TEMP 98.4
== END 2022-06-24 20:17 | disposition home or self-care (01) ==
LOC: EC 15:44
DX: N39.0 Urinary tract infection, site not specified (principal); R22.43 Localized swelling, mass and lump, lower limb, bilateral; I10 Essential (primary) hypertension; I48.91 Unspecified atrial fibrillation; Z88.8 Allergy status to other drugs, medicaments and biological substances
CPT/HCPCS: 51798; 36415; 93005; 83880; 80053; 84484; 85025; 81001; 87086; 71046; 99284; 96365; 96366; 96375; J1940; J1956